=== PATIENT | female | born 1955 | race Caucasian/White ===

== ENCOUNTER 2023-08-26 12:58 | Outpatient (CLI) | payer MEDICARE, SELFPAY ==
--- NOTE | 2023-08-26 13:00 | MM_ITS ---
Patient: SYBIL TAN Facility:?[facility] Patient ID:?[id number] Site Patient ID:?[id number]. Site :?[id number] Study:?XRay-Breast Bilateral 3D w/CAD-08/26/2023 2:46:19 PM Ordering Physician:Geeta Final Report: BILATERAL SCREENING MAMMOGRAM WITH COMPUTER-AIDED DETECTION AND TOMOSYNTHESIS TECHNIQUE: CC and MLO views were obtained. These mammographic images have been obtained using full-field digital technique. These mammographic images were interpreted with the benefit of computer-aided detection. Breast Tomosynthesis was used in this interpretation. COMPARISON FILM: 06/15/2022. FINDINGS: There are scattered areas of fibroglandular density. IMPRESSION: There is no radiographic evidence for malignancy. ASSESSMENT: BI-RADS Category 1: Negative RECOMMENDATION: Routine screening mammogram in 1 year. A lay language report of this examination will be provided to the patient. Aguilar Agrawal M.D. Diagnostic Radiologist [email or web address] DSM/sp R& Transcribed: 12:06 p.m. SP/Dictated by: Aguilar Agrawal MD @ 08/29/2023 9:55:00 AM Signed by:?Aguilar Agrawal MD @08/29/2023 12:12:24 PM (Electronic Signature)
--- OUTSIDE RECORDS SUMMARY | 2023-08-26 13:01 | XMS_ITS | Clinical Summary ---
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 1 mL 12 08/18/2009 Active estradiol vaginal (VAGIFEM) 25 mcg vaginal tabletIndications: Postmenopausal atrophic vaginitis Insert 1 tablet into the vagina. Use in the vagina twice weekly 24 tablet 3 08/18/2009 Active ergocalciferol (VITAMIN D) 50,000 unit capsule Take 1 capsule by mouth. 1 capsule twice weekly 16 capsule 0 08/22/2009 Active Active Problems Problem Noted Date Diagnosed Date Screen for colon cancer 10/01/2009 Overview: Colonoscopy 09/2009 normal repeat in 10 years LGSIL (low grade squamous intraepithelial dyspla aidan) 09/08/2009 Vitamin D deficiency 08/22/2009 Status post gastric bypass for obesity 8 Overview: Rou-n-y surgery in 1999 Closed fracture of one or more phalanges of foot 05/18/2007 Immunizations Name Administration Dates Next Due Td (Age >=7 Years) 02/11/2004 Family History Medical History Relation Name Comments Other Brother sleep apnea Stroke Father Heart Disease Maternal Grandfather Diabetes Maternal Grandmother Heart Disease Mother Psychiatric illness Mother depressi on Cancer-breast Other cousin, father s side Heart Disease Paternal Grandfather Diabetes Sister 1 Other Sister 2 ulcerative coli tis Cancer-colon No Family History Relation Name Status Comments Brother Father Maternal Grandfather Maternal Grandmother Mother Other Paternal Grandfather Sister 1 Sister 2 Social History Tobacco Use Types Packs/Day Years Used Date Smoking Tobacco: Never Smokeless Tobacco: Never Tobacco Cessation:Counseling Given: Yes Alcohol Use Standard Drinks/Week Comments Yes 0 (1 standard drink = 0.6 oz pur e alcohol) wine occasionally Social Connections Answer Date Recorded Frequency of Communication with Friends and Fami ly Not on file 12/16/2021 Sex and Gender Information Value Date Recorded Sex Assigned at Not on file Gender Identity Not on file Sexual Orientation Not on file Obstetrics History Para Term AB IAB SAB Ectopic Multiple Livin g Live Births 6 4 2 2 4 Date Outcome GA Total Labor Labor/2nd/3rd Weight Sex Delivery Anes PTL Betsey A1 A5 Name Cl in Para Para Para Para SAB SAB Last Filed Vital Signs Vital Sign Reading Time Taken Comments Blood Pressure 126/74 12/16/2021 3:14 PM CDT Pulse 74 12/16/2021 3:14 PM CDT Temperature 36.8 ??C (98.2 ??F) 01/01/2008 2:19 PM CD T Respiratory Rate - - Oxygen Saturation 97% 12/16/2021 3:14 PM CDT Inhaled Oxygen Concentration - - Weight 88.7 kg (195 lb 9.6 oz) 12/16/2021 3:14 P M CDT Height 161.3 cm (5' 3.5) 12/16/2021 3:14 PM CDT Body Mass Index 34.11 12/16/2021 3:14 PM CDT Plan of Treatment Health Maintenance Due Date Last Done Comments Tdap 1965 Depression screening for age 12+ 1966 Hepatitis C screening for ag e 18-79 1972 Zoster (shingles) series for age 50+ (1 of 2) 2004 Mammogram for age 45-75 07/01/2010 07/01/2009, 12/31 Tetanus booster 02/10/2014 02/11/2004 Lipids for age 45-75 08/18/2014 08/18/2009, 01/09/20 08 DEXA/DXA scan for age 65+ 2019 Pneumococcal series for age 65+ (1 of 1 - PCV) 2019 Colonoscopy through age 75 10/02/2019 10/01/2009 BMI (ht and wt on same day) for age 18+ 12/16/2022 12/16/2021 COVID-19 vaccine series (5 - 2022-24 season) 2023 11/15/2021, 04/15/2021, 07/19/2020, Additional history exists Influenza for age 65+ 01/22/2024 Procedures Procedure Name Priority Date/Time Associated Diagnosis Comments LIPID PANEL Routine 08/18/2009 4:41 PM CDT Status post gastric bypass for obesity XR MAMMO BILAT DIAG FFDM (IA) Routine 07/01/2009 11:05 AM COLD PRESS LOADER Breast Pain from Last 3 Months or Most Recently Relevant to Health Maintenance Results * lipid panel (08/18/2009 4:41 PM CDT) CHOLESTEROL,TOTAL 192 110 - 199 mg/dL [facility] TRIGLYCERIDES 75 <150 mg/dL [facility] HDL CHOLESTEROL 63 >40 mg/dL [facility] CHOL/HDL RATIO 3.05 <4.51 [facility] LDL CHOLESTEROL 114 <131 mg/dL [facility] PATIENT STATUS Fasting [facility] Blood specimen (specimen) BLOOD SPECIMEN / Unknown 08/18/2009 4:41 PM CDT 08/18/2009 4:30 PM CDT Tish Gardner CHEMISTRY [facility] [address] [place] [address] * XR MAMMO BILAT DIAG FFDM (07/01/2009 11:05 AM COLD PRESS LOADER) MAMMOGRAM ACR 2 Benign Finding Anatomical Region Laterality Modality BREASTS, Breast Left, Breast Right Bilateral Mammography 07/01/2009 11:0 5 AM COLD PRESS LOADER Addenda Addendum by Zack Armenta DO on 07/11/2009 2:50 PM COLD PRESS LOADER ??ADDENDUM ? ADDENDUM ? ADDENDUM It was brought to my attention on 07/11/2009 that this should have actually been a diagnostic mammogram with the patient having left-sided breast pain. ??Apparently this was not related to the technologist at the time of this examination and the patient underwent routine screening. ??There is no change in the interpretation of the mammographic report however if additional imaging is desired and the breast pain is focal then an ultrasound could be considered. ?? Narrative 07/11/2009 1:47 PM COLD PRESS LOADER Benign findings noted on mammogram. ??For complete description of the mammographic examination, please reference scanned document within [facility]. ?? We are mailing a results letter to the patient. ACR 2 Benign Finding Procedure Note Zack Armenta DO - 07/10/2009 Benign findings noted on mammogram. For complete description of themammographic examination, please reference scanned document [facility]. We are mailing a results letter to the patient. ACR 2 Benign Finding Tish Gardner MAMMO from Last 3 Months or Most Recently Relevant to Health Maintenance Care Teams Janitor Head Relationship Specialty Start Date End Date Tanika Dixon PCP - General 03/17/16
--- OUTSIDE RECORDS SUMMARY | 2023-08-26 13:01 | XMS_ITS | Clinical Summary ---
Author Name Unknown Organization [place] Address [address] [place] [address] Care Team Providers Care Supervisor Pumping Station Name Role Phone [facility] Primary Care Provider Umang Perdomo MD Unavailable Poncho Castro MD Unavailable Yumiko Mendoza MD Unavailable Allergies Active Allergy Reactions Criticality Noted Date Comments Penicillin G 02/20/2020 Medications Hospital, Clinic, or Other Facility Administered Medication Ordered Dose Route Frequency Start Date End Date Status triamcinolone (KENALOG-40) injection 40 mgIndications:Rotator cuff injury, initial encounter 40 mg 12/08/2021 Active triamcinolone (KENALOG-40) injection 20 mgIndications:Trigger finger, unspecified finger, unspecified laterality 20 mg 11/01/2022 Ac tive lidocaine 1 % injection 0.5 mLIndications:Trigger finger, unspecified finger, unspecified laterality .5 mL 11/01/2022 Ac tive 0.5 mL bupivacaine (MARCAINE) 0.5% injection (50 mL vial)Indications:Trigger finger, unspecified finger, unspecified laterality .5 mL 11/01/2022 Ac tive Active Problems Problem Noted Date Diagnosed Date ASCUS with positive high risk HPV cervical 02/25 Overview: 06/08/05 NIL Pap 01/01/08 ASCUS pap 08/18/09 LSIL Pap 09/08/09 [place] Bx's ANKITA 1, ECC insufficient tissue to diagnose 02/16/21 Pt with h/o abnormal pap smear and overdue for recheck Unfortunately we do not have recent records. This is per pt report 02/16/21 ASCUS pap, + HR HPV (neg 16/18). [place] due by 05/18/21. 03/25/21 Colpo bx and ECC ANKITA 1. Plan: cotest in one year 06/15/22 NIL pap, + HR HPV (not 16 or 18). Plan cotest in [address] Castro due by 06/15/23 06/23/22. Result sent via [employer]. Pt read results. 05/27/2023 Reminder MyChart 06/27/2023 Reminder call - lm 07/28/2023 Lost to follow-up for pap tracking Resolved Problems Problem Noted Date Diagnosed Date Resolved Date Acute pain of right shoulder 07/01/2021 02/10/2022 Chronic pain of left knee 10/28/2020 Hip pain, left 10/28/2020 01/14/2021 Immunizations Name Administration Dates Next Due Flu, Unspecified 01/30/2020 Hepatitis A (ADULT 19+) 11/09/2021 Influenza (High Dose) 3 valent vaccine 0 Influenza (intradermal) 05/04/2012 Influenza Vaccine 65+ (Fluzone HD) 02/16/2021 Influenza Vaccine >6 months,quad, PF 05/08/2022, 03/05/2019 Influenza Vaccine, 6+MO IM ( QUADRIVALENT W/PRESERVATIVES) 03/25/2014 Influenza, seasonal, injectable, PF 02/16/2011 TDAP Vaccine (Adacel) 02/10/2020 Td (Adult), Adsorbed 02/11/2004 Family History Medical History Relation Comments Diabetes Brother type 2 Cerebrovascular Disease Father age 70, lived 12 more years Depression Mother Thyroid Disease Mother Diabetes Sister 1 type 2 Breast Cancer Sister 2 HERS 2+ Relation Status Comments Brother Father Mother Sister 1 Sister 2 Social History Tobacco Use Types Packs/Day Years Used Date Smoking Tobacco: Never Smokeless Tobacco: Never Tobacco Cessation:Counseling Given: Not Answered Alcohol Use Standard Drinks/Week Comments Yes 0 (1 standard drink = 0.6 oz pur e alcohol) wine maybe x3 month PHQ-2 Answer Date Recorded PHQ-2 Score 0 06/15/2022 Adolescent Education Answer Date Record ed Getting School Help Needed Not on file 02/12 Sex and Gender Information Value Date Recorded Sex Assigned at Female 01/15/2021 4:59 PM CDT Gender Identity Female 01/15/2021 4:59 PM CDT Sexual Orientation Not on file Last Filed Vital Signs Vital Sign Reading Time Taken Comments Blood Pressure 120/70 11/01/2022 1:59 PM CDT Pulse 78 03/25/2021 11:33 AM CDT Temperature 37.2 ??C (98.9 ??F) 03/25/2021 11:33 AM C DT Respiratory Rate 17 03/25/2021 11:33 AM CDT Oxygen Saturation 98% 02/16/2021 2:15 PM CDT Inhaled Oxygen Concentration - - Weight 88.5 kg (195 lb) 11/01/2022 1:59 PM CDT Height 160 cm (5' 3) 06/15/2022 1:19 PM CAP MAKER Body Mass Index 34.54 06/15/2022 1:19 PM CAP MAKER Plan of Treatment Upcoming Encounters Date Type Department Care Team (Late st Contact Info) Description 09/30/2023 9:30 AM CDT Office Visit [facility] [address] [place] [address] Poncho Castro MD [address] [place] [address] Health Maintenance Due Date Last Done Comments ANNUAL REVIEW OF HM ORDERS 1955 CT COLONOGRAPHY 1955 DEXA 1955 FIT 1955 FLEX SIG 1955 sDNA (Cologuard) 1954 COLONOSCOPY 1964 COLORECTAL CANCER SCREENING 1964 RSV VACCINE ( & 60+) (1 - 1-dose 60+ series) 2014 Pneumococcal Vaccine: 65+ Years (1 of 1 - PCV) 2019 FALL RISK ASSESSMENT 02/16/2022 02/16/2021 PHQ-2 (once per calendar year) 2023 06/15/2022, 02/16/2021 HPV FOLLOW-UP 06/15/2023 06/15/2022, 02/16/2021 MEDICARE ANNUAL WELLNESS VISIT 06/15/2023 06/15/2022, 02/16/2021 PAP FOLLOW-UP 06/15/2023 06/15/2022, 01/22, 08/18/2009 GLUCOSE 02/17/2024 02/16/2021 MAMMO SCREENING 06/15/2024 06/15/2022, 11/21, 12/13/2016 ADVANCE CARE PLANNING 02/16/2026 02/16/2021 LIPID 02/16/2026 02/16/2021 DTAP/TDAP/TD IMMUNIZATION (2 - Td or Tdap) 02/09/2030 02/10/2020, 02/11/2004 HEPATITIS C SCREENING Addressed 02/16/2021 (Decline d) Overridden with the intention of not completing the topic INFLUENZA VACCINE Completed 03/28/2023, , 02/16/2021, Additional history exists COVID-19 Vaccine Completed 05/26/2023, , 04/15/2021, Additional history exists ZOSTER IMMUNIZATION Completed 06/06/2023, 3 HPV IMMUNIZATION Aged Out No longer e ligible based on patient's age to complete this topic IPV IMMUNIZATION Aged Out No longer e ligible based on patient's age to complete this topic MENINGITIS IMMUNIZATION Aged Out No l onger eligible based on patient's age to complete this topic RSV MONOCLONAL ANTIBODY Aged Out No l onger eligible based on patient's age to complete this topic Care Teams Supervisor Pumping Station Relationship Specialty Start Date End Date [facility] [address] [place] [address] PCP - General Clinic 02/20/20 Umang Perdomo MD [address] [facility] [place] [address] Assigned Musculoskeletal Provider 12/19/21 Poncho Castro MD [address] [place] [address] Assigned OBGYN Provider 06/19/22 [place] [address] [place] [address] Assigned PCP 07/17/22
--- OUTSIDE RECORDS SUMMARY | 2023-08-26 13:01 | XMS_ITS | Encounter Summary ---
Author Name Unknown Organization [place] Address [address] [place] [address] Care Team Providers Care Airport Traffic Controller Name Role Phone [facility] Primary Care Provider Julisa Chavez MD Unavailable [phone] Yumiko Mendoza MD Unavailable [phone] Umang Perdomo MD Unavailable Poncho Castro MD Unavailable Yumiko Mendoza MD Unavailable [phone] Encounter Details Date Type Department Care Team (Late st Contact Info) Description 07/01/2021 MyC Medical Advice [facility] [address] [place] [address] Tracey Honeycutt MA Social History Tobacco Use Types Packs/Day Years Used Date Smoking Tobacco: Never Smokeless Tobacco: Never Alcohol Use Standard Drinks/Week Comments Yes 0 (1 standard drink = 0.6 oz pur e alcohol) wine maybe x3 month PHQ-2 Answer Date Recorded PHQ-2 Score 0 02/16/2021 Sex and Gender Information Value Date Recorded Sex Assigned at Female 01/15/2021 4:59 PM CDT Gender Identity Female 01/15/2021 4:59 PM CDT Sexual Orientation Not on file COVID-19 Exposure Response Date Recorded In the last month, have you been in contact with someone who was confirmed or suspected to have Coronavirus / COVID-19? No / Unsure 07/01/2021 8:40 AM BUSINESS MANAGEMENT PROFESSOR documented as of this encounter Plan of Treatment Upcoming Encounters Date Type Department Care Team (Late st Contact Info) Description 09/30/2023 9:30 AM CDT Office Visit [facility] [address] [place] [address] Poncho Castro MD [address] [place] [address] documented as of this encounter Visit Diagnoses Not on filedocumented in this encounter Care Teams Airport Traffic Controller Relationship Specialty Start Date End Date Clinic - [facility] [address] [place] [address] PCP - General Clinic 02/20/20 Julisa Chavez MD [facility] [address] [place] [address] Assigned Musculoskeletal Provider 10/26/20 12/18/21 [place] [address] [place] [address] Assigned PCP 03/01/21 05/07/22 Umang Perdomo MD [address] [place] [address] Assigned Musculoskeletal Provider 12/19/21 Poncho Castro MD [address] [place] [address] Assigned OBGYN Provider 06/19/22 [place] [address] [place] [address] Assigned PCP 07/17/22 documented as of this encounter
--- OUTSIDE RECORDS SUMMARY | 2023-08-26 13:01 | XMS_ITS | Encounter Summary ---
Author Name Unknown Organization [facility] Address [address] [place] [address] Care Team Providers Care V Groove Cutter Name Role Phone [facility] Primary Care Provider Julisa Chavez MD Unavailable [phone] Yumiko Mendoza MD Unavailable [phone] Umang Perdomo MD Unavailable Poncho Castro MD Unavailable Yumiko Mendoza MD Unavailable [phone] Encounter Details Date Type Department Care Team (Late st Contact Info) Description 11/02/2021 MyC Medical Advice [facility] [address] [place] [address] Liliana Gardner, RN Social History Tobacco Use Types Packs/Day Years [...] Exposure Response Date Recorded In the last 10 days, have yo u been in contact with someone who was confirmed or suspected to have Coronavirus/COVID-19? No / Unsure 11/03/2021 8:40 AM CDT documented as of this encounter Plan of Treatment Upcoming Encounters Date Type Department Care Team (Late st Contact Info) Description 09/30/2023 9:30 AM CDT Office Visit [facility] [address] [place] [address] Poncho Castro MD [address] [place] [address] documented as of this encounter Visit Diagnoses Not on filedocumented in this encounter Care Teams V Groove Cutter Relationship Specialty Start Date End Date Clinic - [facility] [address] [place] [address] PCP - General Clinic 02/20/20 Julisa Chavez MD [facility] [address] [place] [address] Assigned Musculoskeletal Provider 10/26/20 12/18/21 [place] [address] [place] [address] Assigned PCP 03/01/21 05/07/22 Umang Perdomo MD [address] [place] [address] Assigned Musculoskeletal Provider 12/19/21 Poncho Castro MD [address] [place] [address] Assigned OBGYN Provider 06/19/22 [place] [address] [place] [address] Assigned PCP 07/17/22 documented as of this encounter
--- OUTSIDE RECORDS SUMMARY | 2023-08-26 13:01 | XMS_ITS | Referral Summary ---
Author Name Unknown Organization [facility] Address [address] [place] [address] Care Team Providers Care Associate Project Manager Name Role Phone [facility] [place] Primary Care Provider Umang Perdomo MD Unavailable Poncho Castro MD Unavailable Yumiko Mendoza MD Unavailable [phone] Allergies Active Allergy Reactions Criticality Noted Date [...] 01/01/08 ASCUS pap 08/18/09 LSIL Pap 09/08/09 [place] Bx's ANKITA 1, ECC insufficient tissue to diagnose 02/16/21 Pt with h/o abnormal pap smear and overdue for recheck Unfortunately we do not have recent records. This is per pt report 02/16/21 ASCUS pap, + HR HPV (neg 16/18). [place] due by 05/18/21. 03/25/21 [place] bx and ECC ANKITA 1. Plan: cotest in one year 06/15/22 NIL pap, + HR HPV (not 16 or 18). Plan cotest in [address] Castro due by 06/15/23 06/23/22. Result sent via [email or web address]. Pt read results. 05/27/2023 Reminder MyChart 06/27/2023 [...] Vaccine (Adacel) 02/10/2020 Td (Adult), Adsorbed 02/11/2004 Social History Tobacco Use Types Packs/Day Years [...] 160 cm (5' 3) 06/15/2022 1:19 PM RISK CONTROL ANALYST Body Mass Index 34.54 06/15/2022 1:19 PM RISK CONTROL ANALYST Plan of Treatment Upcoming Encounters Date Type Department Care Team (Late st Contact Info) Description 09/30/2023 9:30 AM CDT Office Visit [facility] [address] [place] [address] Poncho Castro MD [address] [place] [address] Care Teams Associate Project Manager Relationship Specialty Start Date End Date Clinic - [place] [facility] [address] [place] [address] PCP - General Clinic 02/20/20 Umang Perdomo MD [address] [facility] [address] [place] [address] Assigned Musculoskeletal Provider 12/19/21 Poncho Castro MD [address] [place] [address] Assigned OBGYN Provider 06/19/22 [place] [address] [place] [address] Assigned PCP 07/17/22
== END 2023-08-26 12:59 | disposition home or self-care (01) ==
LOC: MAMMO 12:59
PROVIDERS: PCP Internal Medicine; Visit Provider Internal Medicine
DX: Z12.31 Encounter for screening mammogram for malignant neoplasm of breast (principal)
CPT/HCPCS: 77063; 77067

== ENCOUNTER 2023-08-31 09:46 | Outpatient (CLI) | payer MEDICARE, SELFPAY | END 2023-08-31 09:47 | disposition home or self-care (01) | LOC: NFLDREF 09:47 | PROVIDERS: PCP Internal Medicine; Visit Provider Internal Medicine | DX: Z98.84 Bariatric surgery status (principal) | CPT/HCPCS: 80053; 82306; 82525; 82607; 82728; 82747; 83735; 84443; 84446; 84590; 84597; 84630 ==

== ENCOUNTER 2023-12-26 10:30 | Outpatient (RCR) | payer MEDICARE, SELFPAY ==
--- NOTE | 2023-08-02 12:53 | PT.OPEX ---
PT [place] Outpatient Eval PT [facility] Outpatient Eval Start: 08/01/23 13:07 Freq: Status: Active Protocol: Document 08/01/23 13:07 ARR (Rec: 08/01/23 14:18 ARR [id number]) E-signed By Bri Simpson DPT Physical Therapy Outpatient Evaluation Insurance Information Recert Due Date 10/30/23 Insurance Name Medicare B Medical Diagnosis N39.3 Stress incontinence Treating Diagnosis N39.43 Post-void dribbling N39.41 Urge incontinence K59.00 Constipation, unspecified M79.605 pain in left leg Referring MD Inga Cornelius MD ([facility]) Subjective Subjective -Subjective: Ongoing problem for 10+ years. Has IBS with urgency with bowel since 20's. Manages it with diet. Since having trouble sleeping, started taking Calm and this interacts with bowels creating more urgency. 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 This is still a trigger getting home unless she bends over at 45* angle seems to reduce this urge. Bowel - will wake up in the AM and have urge to go 1/2 to 1/3 after coffee. Then will move around and will do the next 1/2 or 1/3. The last BM is liquid because it backs up. IBS started in late 20s with first child. During would create urgency that would resolve after . Managed with diet. Then had gastric bypass surgery 1999 that changed a lot. Over time things calmed down. Lost 100-120#. Knows she isn't as active now. Did leak stool in the last few months, feels it could be due to magnesium but not sure. Was at the opening of anal opening, was liquidy with chunks. only time leaking stool in the last 6 months. Usually is diet driven such as greasy foods, specific alcohol such as wine. -Urinary: Wine can cause urinary incontinence, has reduced. Daytime urination 6-8 times or more. Can be more if not drinking as much water. If she forgets will drink a lot of water. No straining. Post-void dribbling. TRIGGERS: have urinary leakage when taking a shower with a strong urge. Another trigger occurs when pulling into garage with car. Another trigger can occur when cool air hits warm skin in the AM. Going from warm to cold environment. Going from sit to stand after sitting for a period of time when getting an urge to go. LEAKAGE: occurs when having an urge to go. No urge to go when sitting , the urge can come on when rising to standing/standing will get an urge and must lean over 45* from trunk or will leak. Doesn't leak daily, maybe a few drops 2x/wk. Will get outer pants more often in the winter going from the warm to cold will get an urge to urinate. URGENCY: occurs maybe every every other day but triggers occur daily. -Hydration: water 60-90 oz / < 20 oz coffee / alcohol 2x/ month (202# - last 6 wks put on 10#) -Bowel: After BM 4-6 sec after will have urination episode. Throckmorton chart can start as a type 6 and can go to a type 7 if having had a dietary trigger. Can also be a type 4. Majority of stools can be more pencil like in nature. Will typically transition from a firmer stool to a liquid stool. Does splint at perineum . BM will go 2-3 times. When in [place] had beans and rice - had large BM due to heavy on fiber. Now being home stools are more pencil like and thin. Did take 3 big trips this year out of the country. No straining. Incomplete emptying . Bowel urgency in the AM only . Won't go after 11 in the AM. -Sexual: not active. -PMHx: obesity, lichen sclerosis et atrophicus of vulva on topical clobetasol, IBS with diarrhea, discoid lupus erythematosus. -: G/P 4/4 vaginal deliveries. No tear. -Surgical PMHx: Yaneli-en-Y gastric bypass 1999, exploratory laparotomy, cholecystectomy, appendectomy, s/p trigger finger release, s /p brachioplasty, h/o basal cell carcinoma excision Did lose 18 inches of intestines with bypass - was told to watch sugar intake. -Current exercise: walks a lot , does elliptical, nordic track machine - 5x/week walking. -Orthopedic issues: h/o L ITB issues, often legs feel like different lengths -feels like L leg longer -Goals: have list of things that can irritate symptoms, exercises for PF and ITB on L side, be able to stay active as long as possible. Would like to increase to 8 miles. Objective Other/Pertinent Objective -Posture: increased TS kyphosis with forward head and rounded shoulders -Gait: narrowed AUDIE with slight lateral trunk lean during stance phase of each side Functional Test Performed & Score PFQ: -Bladder 16/45 -Bowel 13/34 Total: 29 Assessment Assessment/Impression Pt is a 68 y/o female who presents with concerns of urinary leakage, bowel urgency , post-void dribbling, urinary urgency, and pain in left thigh. From subjective history , symptoms likely indicating / consistent with stress incontinence with underlying constipation. Question underlying descent of anterior vaginal wall as well. Initial session spent on subjective gathering due to level of pt complexity. Next visit to further assess contributing factors to symptoms including vaginal and rectal assessments . Patient is a good candidate for skilled therapy to target deficits described above. Skilled PT intervention is necessary for use of therapeutic exercise manual therapy, neuromuscular re- education, gait training, and therapeutic activity. Functional impairments include difficulty with: urinary leakage, pain in L thigh. See appropriate sections of PT eval for complete list of goals and POC. D/C plan and criteria is for pt to achieve the goals as listed below or until max rehab potential is met. Pt was agreeable with plan of care and goals established. Evaluation and internal vaginal PFM assessment/ treatment with patient consent was requested and obtained. Plan of Care Rehabilitation Potential Good Physical Therapy Goals STG (within 6 visits) 1) Pt will demonstrate proper coordination of motor recruitment patterns for PF then TA activation during isometric activation while maintaining diaphragmatic breathing pattern 2) Pt will report at least 60% improvement in urinary leakage since start of therapy for improved health of vaginal tissues 3) Pt will report ability to walk 4-5 miles without pain exceeding 2/10 and no urinary leakage LTG (within 12 visits) 1) Pt will demonstrate proper coordination of motor recruitment patterns for PF then TA activation during dynamic UE/LE movements in all postures while maintaining diaphragmatic breathing pattern 2) Pt will report reduced bowel frequency not exceeding 2 in quick succession with bristol chart 4-5 for improved bowel health 3) Pt will report at least 60% improvement in urinary leakage since start of therapy for improved health of vaginal tissues 4) Pt will report ability to walk 6-7 miles without pain exceeding 2/10 and no urinary leakage 5) Pt will demonstrate PFQ subscale scores for bladder and bowel <22 for improved quality of life. Treatment Plan/Direct Interventions Gait Training,Joint Mobilization,Manual Therapy, Neuromuscular Re-ed,Self-Care/ Home Management,Therapeutic Activities,Therapeutic Exercises,Traction (Mechanical ) Frequency/Duration 1x/wk x 12 visits in 90 days Patient Will Be Discharged From Therapy Skills [facility],Independent w/ HEP Evaluation Billing Complexity Moderate Certification Information Initial Certification Date 08/02/23 Ending Certification Date 10/30/23 Provider Signature Shows Agreement With POC & Medical Necessity Physician Signature & Date Requested Please Sign/Date Here Physician Comment/Change : Physician NPI Number #
--- NOTE | 2023-10-11 12:37 | PT.OPDNX ---
PT [facility] Daily Note PT [facility] Outpatient Daily Note Start: 08/01/23 13:07 Freq: Status: Active Protocol: Document 10/11/23 09:57 ARR (Rec: 10/11/23 10:59 ARR [email or web address]) E-signed By Bri Simpson DPT PT OP Daily Progress Note Visit Information Note Type Daily Note Visit Number 7 Insurance Information Recert Due Date 01/09/24 Insurance Name Medicare B Insurance Information/Comments Eval: 08/01/23 - 10/11/23 // Visits x 7 // Medical Diagnosis N39.3 Stress incontinence Treating Diagnosis N39.43 Post-void dribbling N39.41 Urge incontinence K59.00 Constipation, unspecified M79.605 pain in left leg Referring MD Inga oCrnelius MD ([facility]) Subjective Subjective -Has had more accidents, up to 68 oz of water. Seems to be tipping point. Before getting out of car does urge suppression, walking up steps - mvmt causes 1 drop of leakage into urethra. This is the point she wants to bend over and dooley. Tries to stop and relax and causes drop of leakage into underwear. Also notes leakage that can occur with attempts at pulling pants down. One day had x 2 leakage episodes. Feels tied to increased water. Hasn't had more urgency but more so leakage. Nighttime urination urination 1st in the AM is a 10-11 sec stream. Daytime urination trying to do at 2 hour intervals but does go just in case when out in public. Did add a lot of water in a short period. -Prior to drinking coffee would drink 12 oz then getting coffee. -No constipation. Waits to have urge for BM. Does have x 3 BM first 2 firm and last one liquid. -Also concerned with continued weight gain. Does eat breakfast and one other meal. -Would like to work with bariatric inside sales engineer vs preventive maintenance coordinator at [facility]. 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 -Can't stop flow of urine at all with UST. -Had PAP smear - got an oral pill but not widely covered. -Didn't go to [employer] - Home Exercise Home Exercise Comments OTHER: -Bladder diary -Bladder norms 08/07 Access Code: [email or web address] URL: [email or web address] Date: 08/15/2023 Prepared by: Bri Simpson Exercises - Sidelying Open Book Thoracic Rotation with Knee on Foam Roll - 1-2 x daily - 5-7 x weekly - 6-8 reps - Sidelying Diaphragmatic Breathing - 1-2 x daily - 5-7 x weekly - 6-8 reps GOALS: -Water bottle ? 24 ounces per day of water - Avoiding skipping meals or going >4 hours between meals - Ask PCP for referral to Coffee Grower at [facility] - Exercises 2x/day Objective Other/Pertinent Objective 08/08/23 INTERNAL EXAMINATION INTRAVAGINAL: -Sensation: intact to touch -Observation: pale discoloration to vestibule. Narrowing of vaginal opening and phimosis of clitoris -Perineum: normal -Cough: bulge -Lifting contraction: slight lift -Bulge: bulge -Prolapse: none Tenderness/pain to palpation/ tone: -Introidus: -Layer 1: ischiocavernosus / bulbospongiousus / superficial transverse perineal -Layer 2: deep transverse perineal / compressor urethra / sphincter urethrovaginalis -Layer 3: puborectalis / pubococcygeus / iliococcygeus TTP with inc'd tone Strength ( R / C / L): -Power (MMT): 2 -Endurance: 8 -Reps: 5 -Fast twitch: 5 -Relaxation of PFM after quick contractions: delayed Other: -Breathing examination: dec?d posterior and lateral ribcage mvmt with inhalation Functional Test Performed & Score PFQ: -Bladder 16/45 -Bowel 13/34 Total: 29 Patient Instructed in Risks/Benefits Yes Self Care Management Training Self-Care Activity Minutes (minutes) 55 Self Care Management Training Extended discussion/education regarding: -Primary factors contributing to sx's including: diet/ constipation/meal frequency, stress, PF weakness contributing factors -Discussed importance of stress mgmt and time for self- care. -Discussed/introduced concept of bowel routines to improve bowel emptying -Discussed digestion and implications of firm stool followed by liquid stool PRIMARY GOALS: ? (1) Urinary urgency ? Sit to stand ? Inhale to prepare. THEN exhale to rise engaging front of pelvic floor (kegel) and tightening lower belly muscles. ? Urge suppression techniques (see sheet) ? (2) -Hydration ? consistency with 50 ounces per day of water ? Avoiding fluid loading, sipping throughout the day ? (3) Bowel routine: ? Develop consistent routine for bowels: could include getting up in the morning, sipping on a hot beverage, eating breakfast, getting some mobility, then sitting on toilet no more than 10 minutes . ? (4) Increasing activity ? self-care time for destressing and decompression ? 4-5x/week 20 minutes KEEP WORKING ON: ? Aiming for plant based, whole foods ? creating diverse gut microbiome ? Fiber 25-35 g ? Getting breakfast in - avoiding skipping meals or going >4 hours between meals ? Ask PCP for referral to Coffee Grower at [facility] ? Exercises 2x/day ? Stress mgmt. ? Quality of sleep Treatment Minutes Timed Code Treatment Minutes 55 Total Treatment Time 55 Billing Units Neuromuscular Reeducation Units 1 Self-Care Activity Units 3 Assessment/Impression Assessment/Impression Flare of sx's after last session with increased urinary leakage/incontinence. Contributing factors including : underlying constipation ( skipping meals, reduced hydration), quick increase in water intake ingesting quickly at one time, increased stress . Also underlying sphincter weakness also likely adversely impacting sx's. Pt does have a hard time maintaining consistent compliance with goals, tends to go on/off. Pt to work on consistency with 4 primary goals as above and report next session. Pt likely to benefit from PT beyond POC dates for full therapeutic improvement. Plan of Care Physical Therapy Goals Pt progressing toward short/ exterminator helper goals STG (within 6 visits) 1) Pt will demonstrate proper coordination of motor recruitment patterns for PF then TA activation during isometric activation while maintaining diaphragmatic breathing pattern 2) Pt will report at least 60% improvement in urinary leakage since start of therapy for improved health of vaginal tissues 3) Pt will report ability to walk 4-5 miles without pain exceeding 2/10 and no urinary leakage LTG (within 12 visits) 1) Pt will demonstrate proper coordination of motor recruitment patterns for PF then TA activation during dynamic UE/LE movements in all postures while maintaining diaphragmatic breathing pattern 2) Pt will report reduced bowel frequency not exceeding 2 in quick succession with bristol chart 4-5 for improved bowel health 3) Pt will report at least 60% improvement in urinary leakage since start of therapy for improved health of vaginal tissues 4) Pt will report ability to walk 6-7 miles without pain exceeding 2/10 and no urinary leakage 5) Pt will demonstrate PFQ subscale scores for bladder and bowel <22 for improved quality of life. Daily Plan of Care Comments -Return vaginally -Review 4 primary goals and leakage -Strengthening exercises and mobility HEP - stress increased activity, stress mgmt Recertification Information Initial Certification Date 08/01/23 Recertification Start Date 10/11/23 Recertification Due Date 01/09/24 Reasons to Continue Skilled Therapy Pt had been seen for post-void dribbling, urge incontinence, constipation for 7 visits from 08/01/23 to 10/11/23 during this episode of physical therapy. Focus of therapy on behavioral education for improving bladder/bowel health by increasing hydration, meal consistency, fiber intake, and reducing urinary triggers. Interventions including ther exercise, manual therapy, self -care, neuromuscular re- education. Pt at this time has not yet met all short/exterminator helper goals and would benefit from extension of current plan of care for maximal therapeutic benefit. Skilled PT is indicated to continue at a frequency of 1x/wk for an additional 8 visits within 90 days. PT to continue working on behavioral strategies for bladder/bowel health in addition to progressing mobility and strengthening program. Rehabilitation Potential Good Provider Signature Shows Agreement With POC & Medical Necessity Physician Comment/Change Comment or Changes Physician NPI Number #
== END 2023-12-26 12:47 | disposition home or self-care (01) ==
PROVIDERS: PCP Internal Medicine; Visit Provider Internal Medicine
DX: N39.3 Stress incontinence (female) (male) (principal); Z51.89 Encounter for other specified aftercare
CPT/HCPCS: 97110; 97112; 97140; 97162; 97535

== ENCOUNTER 2025-02-07 16:36 | Emergency (ER) | payer MEDICARE, SELFPAY ==
--- OUTSIDE RECORDS SUMMARY | 2025-02-07 16:38 | XMS_ITS | Encounter Summary ---
Author Organization [facility] Address [address] [place] [address] Care Team Providers Care Group Underwriter Name Role Phone Clinic - [facility] Primary Care Provider Umang Perdomo MD Unavailable Poncho Castro MD Unavailable [phone] Yumiko Mendoza MD Unavailable [phone] Angelica Elder PA-C Unavailable No Ref-Primary, Physician Primary Care Provider Colette Wolfe MANUFACTURERS AGENT Primary Care Provider Colette Wolfe CNP Unavailable [phone] Angelica Elder PA-C Unavailable [phone] Umang Nina MD Unavailable [phone] Reason for Visit * Reason Onset Date Comments procedure 02/14/2024 Encounter Details Date Type Department Care Team (Late st Contact Info) Description 02/14/2024 MyC Medical Advice [facility] [address] [place] [address] Poncho Castro MD [address] [place], [place] [address] procedure Social History Tobacco Use Types Packs/Day Years Used Date Smoking Tobacco: Never Smokeless Tobacco: Never Alcohol Use Standard Drinks/Week Comments Yes 0 (1 standard drink = 0.6 oz pur e alcohol) wine maybe x3 month PHQ-2 Answer Date Recorded PHQ-2 Score 0 12/07/2023 Adolescent Education Answer Date Record ed Getting School Help Needed Not on file 02/12 Comments No Sex and Gender Information Value Date Recorded Sex Assigned at Female 01/15/2021 4:59 PM CDT Legal Sex Female 7:52 AM CDT Gender Identity Female 01/15/2021 4:59 PM CDT Sexual Orientation Not on file documented as of this encounter Plan of Treatment Upcoming Encounters Date Type Department Care Team (Late st Contact Info) Description 02/14/2025 9:15 AM CDT Office Visit [facility] [address] [place] [address] Poncho Castro MD [address] [place] [address] documented as of this encounter Visit Diagnoses Not on filedocumented in this encounter Care Teams Group Underwriter Relationship Specialty Start Date End Date Clinic - [facility] [address] [place] [address] PCP - General Clinic 02/20/20 07/05/24 No Ref-Primary, Physician PCP - General 07/06/24 07/08/24 Colette Wolfe, MANUFACTURERS AGENT [address] [place] [address] PCP - General Internal Medicine 07/09/24 [place] [address] [place] [address] Assigned Musculoskeletal Provider 12/19/21 05/13/24 Poncho Castro MD [address] [place] [address] Assigned OBGYN Provider 06/19/22 [place] [address] [place] [address] Assigned PCP 07/17/22 07/14/24 Angelica Elder PA-C [address] [place] [address] Physician Marketing Finance Specialist 06/12/24 Colette Wolfe CNP [address] [place] [address] Assigned PCP 07/15/24 Angelica Elder PA-C [address] [place] [address] Assigned Dermatology Provider 08/12/24 12/11/24 Umang Nina MD [address] [place] [address] Assigned Dermatology Provider 12/12/24 documented as of this encounter
--- OUTSIDE RECORDS SUMMARY | 2025-02-07 16:38 | XMS_ITS | Encounter Summary ---
Author Organization [facility] Address [address] [place] [address] Care Team Providers Care Sales Operations Manager Name Role Phone [facility] Primary Care Provider Julisa Chavez MD Unavailable [phone] Yumiko Mendoza MD Unavailable [phone] Umang Perdomo MD Unavailable Poncho Castro MD Unavailable [phone] Yumiko Mendoza MD Unavailable [phone] Angelica Elder PA-C Unavailable [phone] No Ref-Primary, Physician Primary Care Provider Colette Wolfe HOUSE MOVER HELPER Primary Care Provider [phone] Colette Wolfe HOUSE MOVER HELPER Unavailable Angelica Elder PA-C Unavailable [phone] Umang Nina MD Unavailable [phone] Encounter Details Date Type Department Care Team (Late st Contact Info) Description 07/01/2021 [facility] [address] [place] [address] Tracey Honeycutt MA Social History Tobacco Use Types Packs/Day Years Used Date Smoking Tobacco: Never Smokeless Tobacco: Never Alcohol Use Standard Drinks/Week Comments Yes 0 (1 standard drink = 0.6 oz pur e alcohol) wine maybe x3 month PHQ-2 Answer Date Recorded PHQ-2 Score 0 02/16/2021 Comments No Sex and Gender Information Value [...] COVID-19? No / Unsure 07/01/2021 8:40 AM COMMERCIAL LOAN OFFICER documented as of this encounter Plan of Treatment Upcoming Encounters Date Type Department Care Team (Late st Contact Info) Description 02/14/2025 9:15 AM CDT Office Visit [facility] [address] [place] [address] [place] [address] Poncho Castro MD [address] [place] [address] documented as of this encounter Visit Diagnoses Not on filedocumented in this encounter Care Teams Sales Operations Manager Relationship Specialty Start Date End Date Clinic - [facility] [address] [place] [address] PCP - General Clinic 02/20/20 07/05/24 No Ref-Primary, Physician PCP - General 07/06/24 07/08/24 Colette Wolfe, HOUSE MOVER HELPER [address] [place] [address] PCP - General Internal Medicine 07/09/24 Julisa Chavez MD [address] [place] [address] Assigned Musculoskeletal Provider 10/26/20 12/18/21 [place] [address] [place] [address] Assigned PCP 03/01/21 05/07/22 [place] [address] [place] [address] Assigned Musculoskeletal Provider 12/19/21 05/13/24 Poncho Castro MD [address] [place] [address] Assigned OBGYN Provider 06/19/22 [place] [address] [place] [address] Assigned PCP 07/17/22 07/14/24 Angelica Elder PA-C [address] [place] [address] Physician Appraiser Auditor 06/12/24 Colette Wolfe CNP [address] [place] [address] Assigned PCP 07/15/24 Angelica Elder PA-C [address] [place] [address] Assigned Dermatology Provider 08/12/24 12/11/24 Umang Nina MD [address] [place] [address] Assigned Dermatology Provider 12/12/24 documented as of this encounter
--- OUTSIDE RECORDS SUMMARY | 2025-02-07 16:38 | XMS_ITS | Encounter Summary ---
Author Organization [facility] Address [address] [place] [address] Care Team Providers Care Director Home Name Role Phone [facility] Primary Care Provider Julisa Chavez MD Unavailable [phone] Yumiko Mendoza MD Unavailable [phone] Umang Perdomo MD Unavailable Poncho Castro MD Unavailable [phone] Yumiko Mendoza MD Unavailable [phone] Angelica Elder PA-C Unavailable [phone] No Ref-Primary, Physician Primary Care Provider Colette Wolfe BILLING ADJUDICATOR Primary Care Provider [phone] Colette Wolfe BILLING ADJUDICATOR Unavailable [phone] Angelica Elder PA-C Unavailable [phone] Umang Nina MD Unavailable [phone] Encounter Details Date Type Department Care Team (Late st Contact Info) Description 11/02/2021 [facility] [address] [place] [address] Liliana Gardner, RN Social History [...] Description 02/14/2025 9:15 AM CDT Office Visit [facility] [address] [facility] [address] [place] [address] Poncho Castro MD [address] [place] [address] documented as of this encounter Visit Diagnoses Not on filedocumented in this encounter Care Teams Director Home Relationship Specialty Start Date End Date Clinic - [facility] [address] [place] [address] PCP - General Clinic 02/20/20 07/05/24 No Ref-Primary, Physician PCP - General 07/06/24 07/08/24 Colette Wolfe, BILLING ADJUDICATOR [address] [place] [address] PCP - General Internal Medicine 07/09/24 Julisa Chavez MD [address] [place] [address] Assigned Musculoskeletal Provider 10/26/20 12/18/21 [place] [address] [place] [address] Assigned PCP 03/01/21 05/07/22 [place] [address] [place] [address] Assigned Musculoskeletal Provider 12/19/21 05/13/24 Poncho Castro MD [address] [place] [address] Assigned OBGYN Provider 06/19/22 [place] [address] [place] [address] Assigned PCP 07/17/22 07/14/24 Angelica Elder PA-C [address] [place] [address] Physician Scientific Informatics Analyst 06/12/24 Colette Wolfe CNP [address] [place] [address] Assigned PCP 07/15/24 Angelica Elder PA-C [address] [place] [address] Assigned Dermatology Provider 08/12/24 12/11/24 Umang Nina MD [address] [place] [address] Assigned Dermatology Provider 12/12/24 documented as of this encounter
--- OUTSIDE RECORDS SUMMARY | 2025-02-07 16:38 | XMS_ITS | Clinical Summary ---
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 1 mL 12 0 Active estradiol vaginal (VAGIFEM) 25 mcg vaginal tabletIndicatio ns:Postmenopaus al atrophic vaginitis Insert 1 tablet into the vagina. Use in the vagina twice weekly 24 tablet 3 0 Active ergocalciferol (VITAMIN D) 50,000 unit capsule Take 1 capsule by mouth. 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) 09/08/2009 Vitamin D deficiency 08/22/2009 Status post gastric bypass for obesity 8 Overview (01/01/2008): Rou-n-y surgery in 1999 Closed fracture of one or more phalanges of foot 05/18/2007 Immunizations Immunization Administration Dates Next Due Td (Age >=7 [...] and Fami ly Not on file 12/16/2021 Comments No Sex and Gender Information Value Date Recorded Sex Assigned at Not on file Legal Sex Female 6:19 AM [employer] W[employer]PER[employer] Gender Identity Not on file Sexual Orientation Not on file 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, 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 Not on file Not on file Not on f ile Obstetrics History Para Term AB IAB SAB Ectopic Multiple Livin g Live Births 6 4 2 2 4 Date Outcome GA Total Labor Labor/2nd/3rd Weight Sex Type Anes PTL Betsey A1 A5 Name Clin Para Para Para Para SAB SAB Last Filed Vital Signs Vital Sign Reading Time Taken Comments Blood Pressure 126/74 12/16/2021 3:14 PM CDT Pulse 74 12/16/2021 3:14 PM CDT Temperature 36.8 C (98.2 F) 01/01/2008 2:19 PM CDT Respiratory Rate - - Oxygen Saturation 97% 12/16/2021 3:14 PM CDT Inhaled Oxygen Concentration - - Weight 88.7 kg (195 lb 9.6 oz) 12/16/2021 3:14 P M CDT Height 161.3 cm (5' 3.5) 12/16/2021 3:14 PM CDT Body Mass Index 34.11 12/16/2021 3:14 PM CDT Plan of Treatment Health Maintenance Due Date Last Done Comments Depression screening for age 12+ 1966 Hepatitis C screening for age 18-79 1972 Pneumococcal series for age 50+ (1 of 1 - PCV) 2004 Zoster (shingles) series for age 50+ (1 of 2) 2004 Mammogram for age 45-75 07/01/2010 07/01/2009, 12/31 Tetanus booster 02/10/2014 02/11/2004 Lipids for age 45-75 08/18/2014 08/18/2009, 01/09/20 08 DEXA/DXA scan for age 65+ 2019 Colonoscopy through age 75 10/02/2019 10/01/2009 BMI (ht and wt on same day) for age 18+ 12/16/2022 12/16/2021 COVID-19 vaccine series ( - 2024- season) 2025 11/15/2021, 04/15/2021, 07/19/2020, Additional history exists Influenza Vaccine (#1) 2025 RSV vaccine for adults or (1 - 1-dose 75+ series) 2029 Hepatitis B series for 19+ Aged Out N o longer eligible based on patient's age to complete this topic Procedures Procedure Name Priority Date/Time Associated Diagnosis Comments LIPID PANEL Routine 08/18/2009 4:41 PM CDT Status post gastric bypass for obesity XR MAMMO BILAT DIAG FFDM (IA) Routine 07/01/2009 11:05 AM [employer]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 CHOL/HDL RATIO 3.05 <4.51 [facility] LDL CHOLESTEROL 114 <131 mg/dL [facility] PATIENT STATUS Fasting [facility] Blood specimen (specimen) BLOOD SPECIMEN / Unknown 08/18/2009 4:41 PM CDT 08/18/2009 4:30 PM CDT Tish Gardner CHEMISTRY Final R esult [facility] [address] [place] [address] * XR MAMMO BILAT DIAG FFDM (07/01/2009 11:05 AM [employer] W[employer]ER OPERATOR) MAMMOGRAM ACR 2 Benign Finding Anatomical Region Laterality Modality BREASTS, Breast Left, Breast Right Bilateral Mammography 07/01/2009 11:0 5 AM [employer] W[employer] OPERATOR Addenda Addendum by Zack Armenta DO on 07/11/2009 2:50 PM [employer] W[employer] OPERATOR ADDENDUM ADDENDUM ADDENDUM It was brought to my attention on 07/11/2009 that this should have actually been a diagnostic mammogram with the patient having left-sided breast pain. Apparently this was not related to the technologist at the time of this examination and the patient underwent routine screening. There is no change in the interpretation of the mammographic report however if additional imaging is desired and the breast pain is focal then an ultrasound could be considered. Narrative 07/11/2009 1:47 PM [employer] W[employer]ER OPERATOR Benign findings noted on mammogram. For complete description of the mammographic examination, please reference scanned document within [facility]. We are mailing a results letter to the patient. ACR 2 Benign Finding Procedure Note Zack Armenta DO - 07/10/2009 Benign findings noted on mammogram. For complete description of themammographic examination, please reference scanned document [facility]. We are mailing a results letter to the patient. ACR 2 Benign Finding Tish Gardner MAMMO Edited Result - Final from Last 3 Months or Most Recently Relevant to Health Maintenance Insurance [employer] Care Teams Professor Of Education Relationship Specialty Start Date End Date Pcp, No . PCP - General 05/30/24
--- OUTSIDE RECORDS SUMMARY | 2025-02-07 16:39 | XMS_ITS | Clinical Summary ---
Author Organization [facility] Address [address] [place] [id number] Care Team Providers Care Rail Doweling Machine Operator Name Role Phone Poncho Castor MD Unavailable [phone] Angelica Elder PA-C Unavailable [phone] Colette Wolfe WIRELESS SALES EXPERT Primary Care Provider Colette Wolfe CNP Unavailable [phone] Umang Nina MD Unavailable [phone] Allergies Active Allergy Reactions Criticality Noted Date Comments Penicillin G 02/20/2020 Medications clobetasol propionate (TEMOVATE) 0.05 % external cream Apply topically 2 times daily. Active ketoconazole (NIZORAL) 2 % external cream Apply topically daily. Active hydrocortisone 2.5 % creamIndication s:Intertrigo Apply topically 2 times daily. Apply to affected areas twice daily for 2 weeks or until resolution of rash, then discontinue. Thereafter, may use only as needed for flares. 30 g 2 5 Active fluorouracil (EFUDEX) 5 % external creamIndication s:Actinic keratosis Mix with calcipotriene and apply BID to affected areas for 7 days. 40 g 1 5 Active calcipotriene (DOVONOX) 0.005 % external creamIndication s:Actinic keratosis Mix with fluorouracil and apply BID to affected areas for 7 days until desired result is achieved. Wash hands after applying. Avoid sun 60 g 1 5 Active estradiol-noret hindrone (ACTIVELLA) 1-0.5 MG tabletIndicatio ns:Symptomatic menopausal or female climacteric states Take 1 tablet by mouth daily. 90 tablet 5 Active Active Problems Problem Noted Date Diagnosed Date Class 2 severe obesity due t o excess calories with serious comorbidity and body mass index (BMI) of 36.0 to 36.9 in adult 07/09/2024 Counseling for estrogen replacement therapy 01/22 Trigger finger, left index finger 06/06/2023 Overview (07/09/2024): Had shot in [facility], wore off, pain is worse on waking. Now enlarged area in mid- hand. ASCUS with positive high risk HPV cervical 02/25 Overview (07/16/2024): 06/08/05 NIL Pap 01/01/08 ASCUS pap 08/18/09 LSIL Pap 09/08/09 [place] Bx's ANKITA 1, ECC insufficient tissue to diagnose 02/16/21 Pt with h/o abnormal pap smear and overdue for recheck Unfortunately we do not have recent records. This is per pt report 02/16/21 ASCUS pap, + HR HPV (neg 16/18). [place] due by 05/18/21. 03/25/21 [place] bx and ECC ANKITA 1. Plan: cotest in one year 06/15/22 NIL pap, + HR HPV (not 16 or 18). Plan cotest in [address] Castro due by 06/15/23 07/28/2023 Lost to follow-up for pap tracking 09/30/23 ASCUS pap, + HR HPV (not 16 or 18). Plan colp due by 12/31/23 12/07/23 [place] - ECC Atypical cell clusters suspicious for high-grade dysplastic change. Plan LEEP due by 03/08/24. 02/15/24 LEEP Bx: benign. Plan 6 month cotest (due 08/14/24) 07/09/24 NIL pap, Neg HPV. Plan cotest in 1 year, due before 07/09/25 Abnormal Pap smear of cervix 09/08/2009 Vitamin D deficiency 08/22/2009 Status post gastric bypass for obesity 8 Overview (02/10/2024): Rou-n-y surgery in 1999 Closed fracture of one or more phalanges of foot 05/18/2007 Resolved Problems Problem Noted Date Diagnosed Date Resolved Date Acute pain of right shoulder 07/01/2021 02/10/2022 Chronic pain of left knee 10/28/2020 Hip pain, left 10/28/2020 01/14/2021 Encounters Date Type Department Care Team Description 12/27/2024 MyC Medical Advice [facility] [address] [place] [address] Poncho Castro MD Symptomatic menopausal or female climacteric states 11/15/2024 8:30 AM CDT Office Visit [facility] [address] [address] Umang Nina MD Dermal nevus (Primary Dx); Angioma of skin; Lentigo; Seborrheic keratoses; Basal cell carcinoma (BCC) of forehead 11/15/2024 Travel 11/10/2024 Travel from Last 3 Months Immunizations Immunization Administration Dates Next Due Flu, Unspecified 01/30/2020 Hepatitis A (VAQTA)(ADULT 19+) 09/06/2022,2021 Influenza (High Dose) Trivalent,PF (Fluzone) ,02/19/2020 Influenza (intradermal) 05/04/2012 Influenza (prior to 2023) 02/16/2011 Influenza Vaccine 65+ (FLUAD) 03/28/2023 Influenza Vaccine 65+ (Fluzone HD) 02/16/2021 Influenza Vaccine >6 months,quad, PF 05/08/2022, 03/05/2019 Influenza Vaccine, 6+MO IM ( QUADRIVALENT W/PRESERVATIVES) 03/25/2014 TDAP Vaccine (Adacel) 02/10/2020 Td (Adult), Adsorbed 02/11/2004 Typhoid IM 09/06/2022 Yellow Fever 09/06/2022 Zoster recombinant adjuvanted (Shingrix) 024,08/19/2022 Family History Medical History Relation Comments Diabetes Brother type 2 Skin Cancer Brother Cerebrovascular Disease Father age 70, lived 12 more years Skin Cancer Father Depression Mother Thyroid Disease Mother Diabetes Sister [...] pur e alcohol) wine maybe x3 month Social Connection and Isolation Panel [NHANES] A nswer Date Recorded Frequency of Communication with Friends and Fami ly Not on file 07/08/2024 How often do you get together with friends or re latives? Once a week 07/08/2024 Attends Synagogue Services Not on file 07/08 Active Member of Clubs or Organizations Not on f ile 07/08/2024 Attends Club or Organization Meetings Not on alo e 07/08/2024 Marital Status Not on file 07/08/2024 PHQ-2 Answer Date Recorded PHQ-2 Score 1 07/09/2024 [facility] [place] of Occupat ional Health - Occupational Stress Questionnaire Answer Date Recorded Do you feel stress - tense, restless, nervous, or anxious, or unable to sleep at night because your mind is troubled all the time - these days? To some extent 07/08/2024 Exercise Vital Sign Answer Date Recorde d On average, how many days pe r week do you engage in moderate to strenuous exercise (like a brisk walk)? 4 days 07/08/2024 On average, how many minutes do you engage in exercise at this level? 30 min 07/08/2024 Adolescent Education Answer Date Record ed Getting School Help Needed Not on file 02/12 Food Insecurity Answer Date Recorded Within the past 12 months, d id you worry that your food would run out before you got money to buy more? No 07/08/2024 Within the past 12 months, d id the food you bought just not last and you didn t have money to get more? No 07/08/2024 Housing Stability Answer Date Recorded Do you have housing? (Housin g is defined as stable permanent housing and does not include staying outside in a car, in a tent, in an abandoned building, in an overnight half-way, or couch-surfing.) Yes 07/08/2024 Are you worried about losing your housing? No 07/08/2024 Financial Resource Strain Answer Date R ecorded Within the past 12 months, h ave you or your family members you live with been unable to get utilities (heat, electricity) when it was really needed? No 07/08/2024 Transportation Needs Answer Date Record ed Within the past 12 months, h as lack of transportation kept you from medical appointments, getting your medicines, non-medical meetings or appointments, work, or from getting things that you need? No 07/08/2024 Interpersonal Safety Answer Date Record ed Do you feel physically and e motionally safe where you currently live? Yes 07/09/2024 Within the past 12 months, h ave you been hit, slapped, kicked or otherwise physically hurt by someone? No 07/09/2024 Within the past 12 months, h ave you been humiliated or emotionally abused in other ways by your partner or ex-partner? No 07/09/2024 Comments No Sex and Gender Information Value Date Recorded Sex Assigned at Female 01/15/2021 4:59 PM CDT Legal Sex Female 7:52 AM CDT Gender Identity Female 01/15/2021 4:59 PM CDT Sexual Orientation Not on file Last Filed Vital Signs Vital Sign Reading Time Taken Comments Blood Pressure 116/69 07/09/2024 8:17 AM PROGRAM MANAGEMENT SPECIALIST Pulse 66 07/09/2024 8:17 AM PROGRAM MANAGEMENT SPECIALIST Temperature 36.4 C (97.6 F) 07/09/2024 8:17 AM PROGRAM MANAGEMENT SPECIALIST Respiratory Rate 16 07/09/2024 8:17 AM PROGRAM MANAGEMENT SPECIALIST Oxygen Saturation 99% 07/09/2024 8:17 AM PROGRAM MANAGEMENT SPECIALIST Inhaled Oxygen Concentration - - Weight 93.6 kg (206 lb 4.8 oz) 07/09/2024 8:17 A M PROGRAM MANAGEMENT SPECIALIST Height 160.5 cm (5' 3.19) 07/09/2024 8:17 AM CS T Body Mass Index 36.33 07/09/2024 8:17 AM PROGRAM MANAGEMENT SPECIALIST Plan of Treatment Upcoming Encounters Date Type Department Care Team (Late st Contact Info) Description 02/14/2025 9:15 AM CDT Office Visit [facility] [address] [place] [address] Poncho Castro MD [address] [place] [address] Health Maintenance Due Date Last Done Comments ANNUAL REVIEW OF HM ORDERS 1954 CT COLONOGRAPHY 1954 FIT 1954 FLEX SIG 1954 COLONOSCOPY 1964 PNEUMOCOCCAL VACCINE 50+ YEARS (1 of 1 - PCV) 2004 COVID-19 VACCINE ( season) 2025 03/14/2024, 05/26/2023, 11/15/2021, Additional history exists INFLUENZA VACCINE (#1) 2025 , 03/28/2023, 05/08/2022, Additional history exists FALL RISK ASSESSMENT 07/09/2025 07/09/2024, 02/17/20 21 HPV FOLLOW-UP 07/09/2025 07/09/2024, 09/20, 06/15/2022, Additional history exists MEDICARE ANNUAL WELLNESS VISIT 07/09/2025 07/09/2024, 05/26/2023, 06/15/2022, Additional history exists PAP FOLLOW-UP 07/09/2025 07/09/2024, 06/23, 09/30/2023, Additional history exists MAMMO SCREENING 08/25/2025 08/26/2023, 04/0 09/2023, 06/15/2022, Additional history exists COLORECTAL CANCER SCREENING 10/07/2025 sDNA (Cologuard) 10/07/2025 10/07/2022, 10/07/2022 DEXA 08/30/2026 08/30/2024 DIABETES SCREENING 07/09/2027 07/09/2024, 0 07/09/2024, 02/16/2021 RSV VACCINE (1 - 1-dose 75+ series) 2029 ADVANCE CARE PLANNING 07/09/2029 07/09/2024, 021 LIPID 07/09/2029 07/09/2024, 02/16/2021 DTAP/TDAP/TD VACCINE (2 - Td or Tdap) 02/09/2030 02/10/2020, 02/11/2004 HEPATITIS C SCREENING Addressed 02/16/2021 (Decline d) Overridden with the intention of not completing the topic ZOSTER VACCINE Completed 06/06/2023, 08/19/2022 PHQ-2 (once per calendar year) Completed 07/09/2024, 12/07/2023, 06/15/2022, Additional history exists HPV VACCINE (No Doses Required) Completed MENINGITIS VACCINE Aged Out No longer eligible based on patient's age to complete this topic Procedures Procedure Name Priority Date/Time Associated Diagnosis Comments TX REPAIR COMPLEX, WOUND HEAD/AXIL/GEN/HND/FT 2.6-7.5 CM Routine 11/15/2024 9:48 AM CDT Dermal nevus Angioma of skin Lentigo Seborrheic keratoses Basal cell carcinoma (BCC) of forehead TX MOHS HEAD/NCK/HND/FT/GEN 1ST STAGE UP T0 5 BLOCKS Routine 11/15/2024 9:48 AM CDT Dermal nevus Angioma of skin Lentigo Seborrheic keratoses Basal cell carcinoma (BCC) of forehead DX AXIAL HIPS/SPINE Routine 08/30/2024 1 1:47 AM CDT Vitamin D deficiency Encounter for preventive health examination Status post gastric bypass for obesity Screening for osteoporosis Postmenopausal status ASCUS with positive high risk HPV cervical Chest pain, unspecified type COMPREHENSIVE METABOLIC PANEL Routine 07/09/2024 9:40 AM PROGRAM MANAGEMENT SPECIALIST Encounter for preventive health examination Status post gastric bypass for obesity LIPID REFLEX TO DIRECT LDL PANEL Routine 07/09/2024 9:40 AM PROGRAM MANAGEMENT SPECIALIST Encounter for preventive health examination Lipid screening Status post gastric bypass for obesity HPV AND GYNECOLOGIC CYTOLOGY PANEL Routine 07/09/2024 9:17 AM PROGRAM MANAGEMENT SPECIALIST Cervical cancer screening MA SCREENING BILATERAL W/ VENICE Routine 06/15/2022 2:44 PM PROGRAM MANAGEMENT SPECIALIST Visit for screening mammogram from Last 3 Months or Most Recently Relevant to Health Maintenance Results * DX AXIAL HIPS/SPINE (08/30/2024 11:47 AM CDT) Anatomical Region Laterality Modality Dexa Bone Mineral Den sity 08/30/2024 11:4 7 AM CDT Impressions 08/31/2024 1:52 PM CDT IMPRESSION: Low bone density (OSTEOPENIA). T-score meets the WHO criteria for low bone density (osteopenia) at one or more measured sites. The risk of osteoporotic fracture increases approximately two-fold for each standard deviation decrease in T-score. Narrative 08/31/2024 1:52 PM CDT EXAM: DX AXIAL HIPS/SPINE LOCATION: [facility] DATE: 08/30/2024 INDICATION: BMD screening, baseline. On estradiol. DEMOGRAPHICS: Age- 69 years. Gender- Female. Menopausal status- Postmenopausal. COMPARISON: No prior studies available on the current scanner. TECHNIQUE: Dual-energy x-ray absorptiometry (DXA) performed with routine technique. FINDINGS: DXA RESULTS -Lumbar Spine: L1-L4: BMD: 1.024 g/cm2. T-score: -1.4. Z-score: 0.3. -RIGHT Hip Total: BMD: 0.858 g/cm2. T-score: -1.2. Z-score: 0.3. -RIGHT Hip Femoral neck: BMD: 0.796 g/cm2. T-score: -1.7. Z-score: 0.0. -LEFT Hip Total: BMD: 0.823 g/cm2. T-score: -1.5. Z-score: 0.0. -LEFT Hip Femoral neck: BMD: 0.787 g/cm2. T-score: -1.8. Z-score: -0.1. WHO T-SCORE CRITERIA -Normal: T-score at or above -1 SD -Osteopenia: T-score between -1 and -2.5 SD -Osteoporosis: T-score at or below -2.5 SD The World Health Organization (WHO) criteria is applicable to perimenopausal females, postmenopausal females, and men aged 50 years or older. FRACTURE RISK -The FRAX risk calculator is not applicable due to medication that is used for treatment of osteopenia/osteoporosis or can otherwise affect bone mineral density. Procedure Note Reyna Rodrigues PA-C - 08/31/2024 EXAM: DX AXIAL HIPS/SPINE LOCATION: [facility] DATE: 08/30/2024 INDICATION: BMD screening, baseline. On estradiol. DEMOGRAPHICS: Age- 69 years. Gender- Female. Menopausal status-Postmenopausal. COMPARISON: No prior studies available on the current scanner. TECHNIQUE: Dual-energy x-ray absorptiometry (DXA) performed with routinetechnique. FINDINGS: DXA RESULTS -Lumbar Spine: L1-L4: BMD: 1.024 g/cm2. T-score: -1.4. Z-score: 0.3. -RIGHT Hip Total: BMD: 0.858 g/cm2. T-score: -1.2. Z-score: 0.3. -RIGHT Hip Femoral neck: BMD: 0.796 g/cm2. T-score: -1.7. Z-score: 0.0. -LEFT Hip Total: BMD: 0.823 g/cm2. T-score: -1.5. Z-score: 0.0. -LEFT Hip Femoral neck: BMD: 0.787 g/cm2. T-score: -1.8. Z-score: -0.1. WHO T-SCORE CRITERIA -Normal: T-score at or above -1 SD -Osteopenia: T-score between -1 and -2.5 SD -Osteoporosis: T-score at or below -2.5 SD The World Health Organization (WHO) criteria is applicable toperimenopausal females, postmenopausal females, and men aged 50 years orolder. FRACTURE RISK -The FRAX risk calculator is not applicable due to medication that is usedfor treatment of osteopenia/osteoporosis or can otherwise affect bonemineral density. IMPRESSION: Low bone density (OSTEOPENIA). T-score meets the WHO criteriafor low bone density (osteopenia) at one or more measured sites. The riskof osteoporotic fracture increases approximately two-fold for eachstandard deviation decrease in T-score. Colette Wolfe CNP IMG DEXA ORDERABLES Final Resu lt * (ABNORMAL) Lipid panel reflex to direct LDL Fasting (07/09/2024 9:40 AM PROGRAM MANAGEMENT SPECIALIST) Cholesterol 202(H) <200 mg/dL 07/09/2024 9:54 PM PROGRAM MANAGEMENT SPECIALIST [facility] Triglycerides 77 <150 mg/dL 07/09/2024 9:54 PM PROGRAM MANAGEMENT SPECIALIST [facility] Direct Measure HDL 66 >=50 mg/dL 07/09/2024 9:54 PM PROGRAM MANAGEMENT SPECIALIST [facility] LDL Cholesterol Calculated 121(H) <100 mg/dL 07/09/2024 9:54 PM PROGRAM MANAGEMENT SPECIALIST [facility] Non HDL Cholesterol 136(H) <130 mg/dL 07/09/2024 9:54 PM PROGRAM MANAGEMENT SPECIALIST [facility] Patient Fasting > 8hrs? Yes 07/09/2024 9:54 PM PROGRAM MANAGEMENT SPECIALIST [facility] Blood BLOOD SPECIMEN / Unknown Venipuncture / Unknown 07/09/2024 9:40 AM PROGRAM MANAGEMENT SPECIALIST 07/09/2024 9:40 AM PROGRAM MANAGEMENT SPECIALIST Narrative [facility] - 07/09/2024 9:54 PM PROGRAM MANAGEMENT SPECIALIST Cholesterol Desirable: < 200 mg/dL Borderline High: 200 - 239 mg/dL High: >= 240 mg/dL Triglycerides Normal: < 150 mg/dL Borderline High: 150 - 199 mg/dL High: 200-499 mg/dL Very High: >= 500 mg/dL Direct Measure HDL Female: >= 50 mg/dL Male: >= 40 mg/dL LDL Cholesterol Desirable: < 100 mg/dL Above Desirable: 100 - 129 mg/dL Borderline High: 130 - 159 mg/dL High: 160 - 189 mg/dL Very High: >= 190 mg/dL Non HDL Cholesterol Desirable: < 130 mg/dL Above Desirable: 130 - 159 mg/dL Borderline High: 160 - 189 mg/dL High: 190 - 219 mg/dL Very High: >= 220 mg/dL us Colette Wolfe WIRELESS SALES EXPERT LAB - BLOOD ORDERABLES Final R esult [facility] [address] [facility] [address] [facility], [address] [place] [address], [facility] * Comprehensive metabolic panel (BMP + Alb, Alk Phos, ALT, AST, Total. Bili, TP) (07/09/2024 9:40 AM PROGRAM MANAGEMENT SPECIALIST) Pathologist [facility] Sodium 140 135 - 145 mmol/L 07/09/2024 9:54 PM PROGRAM MANAGEMENT SPECIALIST [facility] Potassium 4.3 3.4 - 5.3 mmol/L 07/09/2024 9:54 PM PROGRAM MANAGEMENT SPECIALIST [facility] Carbon Dioxide (CO2) 24 22 - 29 mmol/L 07/09/2024 9:54 PM PROGRAM MANAGEMENT SPECIALIST [facility] Anion Gap 11 7 - 15 mmol/L 07/09/2024 9:54 PM PROGRAM MANAGEMENT SPECIALIST [facility] Urea Nitrogen 15.4 8.0 - 23.0 mg/dL 07/09/2024 9:54 PM PROGRAM MANAGEMENT SPECIALIST [facility] Creatinine 0.80 0.51 - 0.95 mg/dL 07/09/2024 9:54 PM PROGRAM MANAGEMENT SPECIALIST [facility] GFR Estimate 79 >60 mL/min/1.7 3m2 07/09/2024 9:54 PM PROGRAM MANAGEMENT SPECIALIST [facility] Comment:eGFR calculated us2020 CKD-EPI equation. Calcium 9.4 8.8 - 10.4 mg/dL 07/09/2024 9:54 PM PROGRAM MANAGEMENT SPECIALIST [facility] Chloride 105 98 - 107 mmol/L 07/09/2024 9:54 PM PROGRAM MANAGEMENT SPECIALIST [facility] Glucose 99 70 - 99 mg/dL 07/09/2024 9:54 PM PROGRAM MANAGEMENT SPECIALIST [facility] Alkaline Phosphatase 89 40 - 150 U/L 07/09/2024 9:54 PM PROGRAM MANAGEMENT SPECIALIST [facility] AST 25 0 - 45 U/L 07/09/2024 9:54 PM PROGRAM MANAGEMENT SPECIALIST [facility] ALT 13 0 - 50 U/L 07/09/2024 9:54 PM PROGRAM MANAGEMENT SPECIALIST [facility] Protein Total 7.6 6.4 - 8.3 g/dL 07/09/2024 9:54 PM PROGRAM MANAGEMENT SPECIALIST [facility] Albumin 4.1 3.5 - 5.2 g/dL 07/09/2024 9:54 PM PROGRAM MANAGEMENT SPECIALIST [facility] Bilirubin Total 0.6 <=1.2 mg/dL 07/09/2024 9:54 PM PROGRAM MANAGEMENT SPECIALIST [facility] Patient Fasting > 8hrs? Yes 07/09/2024 9:54 PM PROGRAM MANAGEMENT SPECIALIST [facility] Blood BLOOD SPECIMEN / Unknown Venipuncture / Unknown 07/09/2024 9:40 AM PROGRAM MANAGEMENT SPECIALIST 07/09/2024 9:40 AM PROGRAM MANAGEMENT SPECIALIST Colette Wolfe WIRELESS SALES EXPERT LAB - BLOOD ORDERABLES Final R esult [facility]ATORY [facility] [address] [facility] [address], [address] [place] [phone], [facility] * HPV and Gynecologic Cytology Panel - Recommended Age 30 - 65 Years (07/09/2024 9:17 AM PROGRAM MANAGEMENT SPECIALIST) Human Papilloma Virus 16 DNA Negative Negative 07/10/2024 4:32 PM PROGRAM MANAGEMENT SPECIALIST [facility] Human Papilloma Virus 18 DNA Negative Negative 07/10/2024 4:32 PM PROGRAM MANAGEMENT SPECIALIST [facility] Human Papilloma Virus Other Negative Negative 07/10/2024 4:32 PM PROGRAM MANAGEMENT SPECIALIST [facility] FINAL DIAGNOSIS This patient's sample is negative for high risk HPV DNA. METHODOLOGY: The [employer] system uses automated extraction, simultaneous amplification of HPV (E6/E7 oncogenes) and beta-globin, followed by real time detection of fluorescent labeled HPV and beta globin using specific oligonucleotide probes. The test specifically identifies types HPV 16 DNA and HPV 18 DNA while concurrently detecting the rest of the high risk types (31, 33, 35, 39, 45, 51, 52, 56, 58, 59, 66 or 68). COMMENTS: This test is not intended for use as a screening device for woman under age 30 with normal cervical cytology. Results should be correlated with cytologic and histologic findings. Close clinical follow up is recommended. Please see the separate Gynecologic Cytology (Pap) report from the same collection date. 07/10/2024 4:32 PM PROGRAM MANAGEMENT SPECIALIST MOLECULAR DIAGNOSTICS Brushing ENDOCERVICAL STRUCTURE / Unknown Non-blood Collection / Unknown 07/09/2024 9:17 AM PROGRAM MANAGEMENT SPECIALIST 07/09/2024 9:49 AM PROGRAM MANAGEMENT SPECIALIST Colette Wolfe WIRELESS SALES EXPERT LAB - BLOOD ORDERABLES Final R esult [facility] [address] [facility] [address], [address] [phone], [employer] [facility] [employer] MOLECULAR DIAGNOSTICS Molecular Diagnostics [address] [facility] [address] Building, Room [address] [place] [phone], [place] * [place] Screening Bilateral w/ [place] (06/15/2022 2:44 PM PROGRAM MANAGEMENT SPECIALIST) Anatomical Region Laterality Modality Breast Bilateral Mammography Impressions 06/21/2022 11:18 AM PROGRAM MANAGEMENT SPECIALIST IMPRESSION: ACR BI-RADS Category 1: Negative RECOMMENDED FOLLOW-UP: Annual routine screening mammogram The results and recommendations of this examination will be communicated to the patient. Ivonne Sanchez MD Narrative 06/21/2022 11:18 AM PROGRAM MANAGEMENT SPECIALIST BILATERAL FULL FIELD DIGITAL SCREENING MAMMOGRAM WITH TOMOSYNTHESIS Performed on: 06/15/22 Compared to: 04/03/2021, 01/15/2019, and 12/28/2017 Technique: This study was evaluated with the assistance of Computer-Aided Detection. Breast Tomosynthesis was used in interpretation. Findings: The breasts have scattered areas of fibroglandular density. There is no radiographic evidence of malignancy. Poncho Castro MD IMG MAMMOGRAPHY ORDERA BLES Final Result from Last 3 Months or Most Recently Relevant to Health Maintenance Insurance [facility] MEDICARE ADVANTAGE [facility] MEDICARE ADVANTAGE Care Teams Rail Doweling Machine Operator Relationship Specialty Start Date End Date Colette Wolfe CNP [address] [place] [address] PCP - General Internal Medicine 07/09/24 Poncho Castro MD [address] [place] [address] Assigned OBGYN Provider 06/19/22 Angelica Elder PA-C [address] [address] Physician Air Duct Mechanic 06/12/24 Colette Wolfe CNP [address] [place] [address] Assigned PCP 07/15/24 Umang Nina MD [facility] [place] [address] Assigned Dermatology Provider 12/12/24
--- OUTSIDE RECORDS SUMMARY | 2025-02-07 16:39 | XMS_ITS | Encounter Summary ---
Author Organization [facility] Address [address] [place] [address] Care Team Providers Care Veterinary Dentist Name Role Phone Poncho Castro MD Unavailable Angelica Elder PA-C Unavailable [phone] Colette Wolfe LABORER CHEESEMAKING Primary Care Provider Colette Wolfe CNP Unavailable [phone] Umang Nina MD Unavailable Encounter Details Date Type Department Care Team (Late st Contact Info) Description 12/27/2024 MyC Medical Advice [facility] [place] [address] [place] [address] Poncho Castro MD [address] [place] [address] Symptomatic menopausal or female climacteric states Social History Tobacco Use Types Packs/Day Years [...] re latives? Once a week 07/08/2024 Attends Congregation Services Not on file 02/16 /2025 Active Member of Clubs or Organizations Not on f ile 07/08/2024 Attends Club or Organization Meetings Not on alo e 07/08/2024 Marital Status Not on file 07/08/2024 PHQ-2 Answer Date Recorded PHQ-2 Score 1 07/09/2024 [facility] of Occupat ional Health - Occupational Stress [...] Answer Date Recorded Do you have housing? (Fatimah g is defined as stable permanent housing and does not include staying outside in a car, in a tent, in an abandoned building, in an overnight custodial, or couch-surfing.) Yes 07/08/2024 Are you worried [...] on file documented as of this encounter Miscellaneous Notes * Telephone Encounter - Veronica Doe RN - 12/27/2024 11:33 AM CDT Refill sent to pharmacy. Last OV 01/2024 Veronica Doe RN [facility] documented in this encounter Plan of Treatment Upcoming Encounters Date Type Department Care Team (Late st Contact Info) Description 02/14/2025 9:15 AM CDT Office Visit [facility] [address] [place] [address] Poncho Castro MD [address] [place] [address] documented as of this encounter Visit Diagnoses Diagnosis Symptomatic menopausal or female climacteric states documented in this encounter Care Teams Veterinary Dentist Relationship Specialty Start Date End Date Colette Wolfe CNP [address] [place] [address] PCP - General Internal Medicine 07/09/24 Poncho Castro MD [address] [place] [address] Assigned OBGYN Provider 06/19/22 Angelica Elder PA-C [address] [place] [address] Physician Engineering Technician Parking 06/12/24 Colette Wolfe, LABORER CHEESEMAKING [address] [place] [address] Assigned PCP 07/15/24 Umang Nina MD [address] [place] [address] Assigned Dermatology Provider 12/12/24 documented as of this encounter
--- OUTSIDE RECORDS SUMMARY | 2025-02-07 16:39 | XMS_ITS | Encounter Summary ---
Author Organization [facility] Address [address] [place] [address] Care Team Providers Care Sales Account Representative Name Role Phone Poncho Castro MD Unavailable [phone] Yumiko Mendoza MD Unavailable [phone] Angelica Elder PA-C Unavailable [phone] Colette Wolfe TELEVISION REPAIR TEACHER Primary Care Provider [phone] Colette Wolfe CNP Unavailable [phone] Angelica Elder PA-C Unavailable [phone] Umang Nina MD Unavailable + [phone] Encounter Details Date Type Department Care Team (Late st Contact Info) Description 07/10/2024 MyC Medical Advice Initial Department [facility] Social History Tobacco Use Types Packs/Day Years [...] re latives? Once a week 07/08/2024 Attends Judaism Services Not on file 07/08 Active Member of Clubs or Organizations Not on f ile 07/08/2024 Attends Club or Organization Meetings Not on alo e 07/08/2024 Marital Status Not on file 07/08/2024 PHQ-2 Answer Date Recorded PHQ-2 Score 1 07/09/2024 [facility] - Occupational Stress Questionnaire Answer Date Recorded [...] Date Recorded Do you have housing? (Fatimah fajardo is defined as stable permanent housing and does not include staying outside in a car, in a tent, in an abandoned building, in an overnight fci, or couch-surfing.) Yes 07/08/2024 Are you worried [...] Description 02/14/2025 9:15 AM CDT Office Visit [facility] [address] [place] [address] Poncho Castro MD [address] [place] [address] documented as of this encounter Visit Diagnoses Not on filedocumented in this encounter Care Teams Sales Account Representative Relationship Specialty Start Date End Date Colette Wolfe CNP [address] [place] [address] PCP - General Internal Medicine 07/09/24 Poncho Castro MD [address] [place] [address] Assigned OBGYN Provider 06/19/22 [place] [address] [place] [address] Assigned PCP 07/17/22 07/14/24 Angelica Elder PA-C [address] [place] [address] Physician Client Success Director 06/12/24 Colette Wolfe CNP [address] [place] [address] Assigned PCP 07/15/24 Angelica Elder PA-C [address] [place] [address] Assigned Dermatology Provider 08/12/24 12/11/24 Umang Nina MD [facility] [place] [address] Assigned Dermatology Provider 12/12/24 documented as of this encounter
--- OUTSIDE RECORDS SUMMARY | 2025-02-07 16:39 | XMS_ITS | Encounter Summary ---
Author Organization [facility] Address [address] [place] [address] Care Team Providers Care Minesweeping Officer Name Role Phone Poncho Castro MD Unavailable [phone] Yumiko Mendoza MD Unavailable [phone] Angelica Elder PA-C Unavailable [phone] Colette Wolfe WHARFINGER CHIEF Primary Care Provider [phone] Colette Wolfe CNP Unavailable [phone] Angelica Elder PA-C Unavailable [phone] Umang Nina MD Unavailable + [phone] Encounter Details Date Type Department Care Team (Late st Contact Info) Description 07/10/2024 MyC Medical Advice Initial [facility] Social History Tobacco Use [...] re latives? Once a week 07/08/2024 Attends Scientologist Services Not on file 07/08 Active Member of Clubs or Organizations Not on f ile 07/08/2024 Attends Club or Organization Meetings Not on alo e 07/08/2024 Marital Status Not on file 07/08/2024 PHQ-2 Answer Date Recorded PHQ-2 Score 1 07/09/2024 [facility] of [facility]at [facility] - Occupational Stress Questionnaire Answer Date [...] in an abandoned building, in an overnight correction, or couch-surfing.) Yes 07/08/2024 Are you worried [...] Description 02/14/2025 9:15 AM CDT Office Visit [facility] [address] [place] [address] Poncho Castro MD [address] [place] [address] documented as of this encounter Visit Diagnoses Not on filedocumented in this encounter Care Teams Minesweeping Officer Relationship Specialty Start Date End Date Colette Wolfe CNP [address] [place] [address] PCP - General Internal Medicine 07/09/24 Poncho Castro MD [address] [place] [address] Assigned OBGYN Provider 06/19/22 [place] [address] [place] [address] Assigned PCP 07/17/22 07/14/24 Angelica Elder PA-C [address] [place] [address] Physician Door Opener 06/12/24 Colette Wolfe CNP [address] [place] [address] Assigned PCP 07/15/24 Angelica Elder PA-C [address] [place] [address] Assigned Dermatology Provider 08/12/24 12/11/24 Umang Nina MD [facility] [place] [address] Assigned Dermatology Provider 12/12/24 documented as of this encounter
[2025-02-07 17:00] VITALS: BP 122/58; PULSE 84; RESP 16; TEMP 36.3; O2SAT 99; BMI 35.1
[2025-02-07 17:09] LABS: Appearance Urine Clear (Clear)
--- NOTE | 2025-02-07 17:55 | ED.GENADULT ---
HPI - General Adult General Date Seen: 02/07/25 Chief complaint: Back Injury/Pain Stated complaint: Triage nurse sent - possible kidney stone Time Seen by Provider: 02/07/25 17:55 History of Present Illness HPI narrative: 69-year-old female with a past medical history of elevated BMI, Yaneli-en-Y gastric bypass, 1 previous bowel obstruction managed operatively in 2004, cholecystectomy, 1 previous kidney stone, prediabetes, rosacea, irritable bowel syndrome,. She does not have any known history pancreatitis, peptic ulcer disease, low back problems, or back surgeries. No known history of vascular problems or aortic problems. She presents to the ER today with a in her back/right flank- between her waist and her bra strap. It feels like stabbing pain. She 1st had an episode this pain about 2 months ago on November 28. She had been at dinner with some friends here in [place] and had would fired pizza and a couple of ?short true so? drinks. After that she had this intense stabbing pain in right flank. Was pretty intense for a few hours and then was mild for couple of days and was largely better. 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 She started having a little bit of pain yesterday and had some very mild pain this morning when she got up but generally felt okay. She had an active morning and went through the [facility] and [facility] and flew home. When she was getting off the plane here in [place] and walking [place] she had onset of another severe stabbing episode of pain. It is again located in her right flank. It does not radiate to the front. The pain is does not feel exactly like her previous kidney stone (that stone presented with a lot of urethral pain as well). Sometimes the pain radiates from the right flank into the left flank. No pain in the front of her abdomen. She is not having any shortness of breath but does note when the pain is severe that it, ?takes her breath away. ?. She does not have any recent swelling in her legs. No history of DVT or PE. Other than her plane flight to [place] and back no other recent immobilization. She does not have a cough. No rib pain. No rash. No known injury. The pain does not radiate down her legs. No associated numbness. Urination has been normal. Bowel movements have been normal safe she had some loose stools about 3 days ago. No bloody stools. Related Data Home Medications ?Medication ?Instructions ?Recorded ?Confirmed biotin PO .QD 09/02/22 09/09/23 cholecalciferol (vitamin D3) 25 25 mcg PO QDAY 09/02/22 09/09/23 mcg (1,000 unit) capsule multivitamin 1 tab PO QAM 09/02/22 05/26/23 clobetasol 0.05 % topical ointment 1 applic topical QDAY PRN 09/06/22 09/09/23 ibuprofen 800 mg tablet 800 mg PO TID PRN 09/06/22 09/09/23 ketoconazole 2 % topical cream 1 applic topical BID PRN 09/06/22 09/09/23 Allergies Allergy/AdvReac Type Severity Reaction Status Date / Time Penicillins Allergy Severe Anaphylaxis Verified 02/07/25 19:57 PFSH PFSH Surgical History (Updated 09/09/23 @ 10:29 by Zahraa Sheth) History of exploratory laparotomy ?Z98.890 - Other specified postprocedural states (ICD-10) History of cholecystectomy (~03/1986) ?Z90.49 - Acquired absence of other specified parts of digestive tract (ICD-10) History of appendectomy ?Z90.49 - Acquired absence of other specified parts of digestive tract (ICD-10) History of tonsillectomy ?Z90.89 - Acquired absence of other organs (ICD-10) S/P trigger finger release ?Z98.890 - Other specified postprocedural states (ICD-10) H/O excision of ganglion cyst ?Z98.890 - Other specified postprocedural states (ICD-10) Status post brachioplasty ?Z98.890 - Other specified postprocedural states (ICD-10) History of basal cell carcinoma excision ?Z98.890 - Other specified postprocedural states (ICD-10) ?Z85.828 - Personal history of other malignant neoplasm of skin (ICD-10) Family History (Updated 09/09/23 @ 10:33 by Zahraa Sheth) Father Stroke Sister Breast cancer Diabetes Mother CHF (congestive heart failure) Brother Diabetes Social History (Updated 09/09/23 @ 10:34 by Zahraa Sheth) Narrative: 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 What is your current living situation?: I presently have a place to live Problems where you live: no known problems In the past 12 months, utilities in danger of being shut off: no In past 12 months, lack of transportation kept you from medical appts, meetings, work, or getting things needed for daily living: no In the past 12 mos, have been you worried that your food would run out before you had money to buy more?: never true In the past 12 mos, the food you bought just didn't last and you didn't have money to buy more?: never true Smoking Status: Never smoker Second hand tobacco smoke exposure: No How often do you have a drink containing alcohol: never AUDIT-C Alcohol total score: 0 Non-prescribed substance use: denies use Are you now , , , , never or living with a partner: Social isolation score (0-1 are the most socially isolated patients): 1 How often does anyone, including family, friends and others, physically hurt you: never How often does anyone, including family, friends and others, insult or talk down to you: rarely How often does anyone, including family, friends and others, threaten you with harm: never How often does anyone, including family, friends and others, scream or curse at you: never Health Related Social Needs: Other personal risk factors, not elsewhere classified (Z91.89) Exam Narrative: Exam Narrative: Constitutional: Appears well-developed and well-nourished. Alert. Conversant. Non toxic. HENT: Head: Atraumatic. Nose: Nose normal. Mouth/Throat: Oral mucosa is clear and moist. no trismus. Pharynx normal. Tonsils symmetric. No tonsillar enlargement, erythema, or exudate. Eyes: Conjunctivae normal. EOM normal. Pupils equal, round, and reactive to light. No scleral icterus. Neck: Normal range of motion. Neck supple. No tracheal deviation present. Cardiovascular: Normal rate, regular rhythm. No gallop. No friction rub. No murmur heard. Symmetric radial artery pulses Pulmonary/Chest: Effort normal. No stridor. No respiratory distress. No wheezes. No rales. No rhonchi . No tenderness. Abdominal: Soft. Bowel sounds normal. No distension. No mass. No tenderness. No rebound. No guarding. Right CVA tenderness. No bruising. No rash. Musculoskeletal: Right CVA tenderness. No midline thoracic or lumbar aunts tenderness or step-off. No bruising. No redness. No warmth. No rash. No shingles. RUE: Normal range of motion. No tenderness. No deformity LUE: Normal range of motion. No tenderness. No deformity RLE: Normal range of motion. No edema. No tenderness. No deformity LLE: Normal range of motion. No edema. No tenderness. No deformity Neurological: Alert and oriented to person, place, and time. Normal strength. CN II-VII intact. No sensory deficit. GCS eye subscore is 4. GCS verbal subscore is 5. GCS motor subscore is 6. Normal coordination Sensory: Normal light touch sensation bilaterally on the anteromedial thigh (L3), medial malleolus (L4), dorsal first web space (L5), lateral malleolus (S1). Strength: 5/5 strength hip flexors (L3) on the right and left 5/5 strength in the quadriceps (L4) on the right and left 5/5 strength in the tibialis anterior 5/5 strength in the EHL (L5) on the right and left 5/5 strength in the gastrocnemius (S1) on the right and left 5/5 strength in the hamstring on the right and left Skin: Skin is warm and dry. No rash noted. No pallor. Normal capillary refill. Psychiatric: Normal mood. Normal affect. Const: Vital Signs, click to edit/add: Vital Signs - 24 hr 02/07/25 17:00 02/07/25 19:00 02/07/25 19:30 Temperature 97.3 F L Pulse Rate Pulse Rate [Pulse Oximeter] 84 73 71 Respiratory Rate 16 18 16 Blood Pressure [Ri ght Upper Arm] 122/58 L 147/77 H 139/72 Pulse Oximetry 99 99 99 Oxygen Delivery Me thod Room Air Room Air Room Air 02/07/25 20:55 02/07/25 21:00 Temperature Pulse Rate 69 70 Pulse Rate [Pulse Oximeter] Respiratory Rate Blood Pressure [Ri ght Upper Arm] Pulse Oximetry 98 100 Oxygen Delivery Me thod Course Vital Signs Vital signs: Initial Vital Signs Temperature 97.3 F L 02/07/25 17:00 Temperature Source Temporal Artery Scan 02/07/25 17:00 Pulse Rate 84 02/07/25 17:00 Respiratory Rate 16 02/07/25 17:00 Blood Pressure 122/58 L 02/07/25 17:00 Blood Pressure Mean 79 02/07/25 17:00 Blood Pressure Position Sitting 02/07/25 17:00 Pulse Oximetry 99 02/07/25 17:00 Oxygen Delivery Method Room Air 02/07/25 17:00 Vital Signs Temperature 97.3 F L 02/07/25 17:00 Pulse Rate 84 02/07/25 17:00 Respiratory Rate 16 02/07/25 17:00 Blood Pressure 122/58 L 02/07/25 17:00 Pulse Oximetry 99 02/07/25 17:00 Oxygen Delivery Method Room Air 02/07/25 17:00 Temperature 97.3 F L 02/07/25 17:00 Pulse Rate 70 02/07/25 21:00 Respiratory Rate 16 02/07/25 19:30 Blood Pressure 139/72 02/07/25 19:30 Pulse Oximetry 100 02/07/25 21:00 Oxygen Delivery Method Room Air 02/07/25 19:30 Medications Administered Medications: Discontinued Medications Generic Name Dose Route Start Last Admin Trade Name Freq PRN Reason Stop Dose Admin Ketorolac Tromethamine 15 mg 02/07/25 18:18 02/07/25 19:20 Ketorolac 15 Mg/Ml Inj IVP 02/07/25 18:19 15 mg ONCE ONE Administration Medical Decision Making [facility] Narrative Medical decision making narrative: 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 He had a similar episode about 2 months ago that came without clear cause and resolved after a couple of days. Differential is broad. Consider possible kidney stone however urinalysis is negative for hematuria. Urinalysis also negative for any signs of infection to suggest pyelonephritis. The pain is mostly in her right flank and is not in the midline low back. There is no radiation of symptoms down into her pelvis, legs. No evidence that this is a lumbar radiculopathy or specifically referral to her vertebrae or spine. No risk factors for epidural abscess, hematoma. No obvious spine fractures or Mets on the CT scan. She has had recent travel to and from [place]. Considerable possible PE. She has no exam findings for DVT. We did obtain CT PA which is negative for any sign of acute pulmonary embolism. Also CT is negative for right-sided pleural effusion, right lower lobe infiltrate or pneumonia, right-sided pneumothorax. She is not hypoxic or short of breath. No anterior chest pain to raise any concern for ACS. She has had previous cholecystectomy. Also room like gastric bypass and previous appendectomy. She is not having any right upper quadrant anterior pain, and denies any relationship of her pain to food. LFTs are normal. Lipase is normal. Per abdominal CT scan she does have a dilated common bile duct at 12 mm. This could be postoperative for her previous cholecystectomy. Radiology recommends MRCP if there is clinical evidence for biliary obstruction. However she is not having any anterior pain, elevated LFTs, so this point clinically this does not fit with a biliary cause. No signs of any thoracic cellulitis, skin infection, shingles. No bruising. It is possible of the pain is musculoskeletal. However she has no known injury. At this point she is not having any symptoms of lumbar radiculopathy to raise need for admission or MRI tonight. Plan will be for careful observation and 18-24 hour recheck re-eval and recheck labs for her blood counts and LFTs. Return to the ER sooner if worse. Return precautions reviewed reviewed. Instymeds prescriptions for [place] and Flexeril. Opiate and sedation precautions reviewed. Lab Data Labs: Lab Results 02/07/25 02/07/25 Range/Units 16:47 19:10 WBC 8.28 (4.50-11.00) K/uL RBC 4.59 (4.00-5.20) m/uL Hgb 12.1 (12.0-16.0) gm/dL Hct 38.4 (33.0-51.0) % MCV 84 (80-100) fL MCH 26 (26-34) pg MCHC 32 (32-36) gm/dL RDW Coeff of Vance 15.7 H (11.5-15.5) % Plt Count 175 (140-440) K/uL Neut % (Auto) 69.5 (42.0-72.0) % Lymph % (Auto) 19.3 L (20-44) % [place] % (Auto) 9.1 (0.0-11.0) % Eos % (Auto) 1.1 (0.0-7.0) % Baso % (Auto) 0.2 (0.0-3.0) % Neut # (Auto) 5.75 (1.7-7.0) K/uL Lymph # (Auto) 1.60 (0.90-2.90) K/uL [place] # (Auto) 0.80 (0.00-0.90) K/UL Eos # (Auto) 0.09 (0.00-0.50) K/uL Baso # (Auto) 0.02 (0.00-0.30) K/uL Abs Immat Gran (auto) 0.07 (0.00-0.30) K/uL Imm/Tot Granulo (auto) 0.8 % Sodium 138 (135-149) mmol/L Potassium 4.7 (3.6-5.1) mmol/L Chloride 106 (96-114) mmol/L Carbon Dioxide 27 (20-32) mmol/L Anion Gap 5 L (7-15) mEq/L BUN 14 (7-30) mg/dL Creatinine 0.8 (0.5-1.5) mg/dL Estimated Creat Clear 45.20 Estimated GFR 79 ml/min Glucose 87 (60-115) mg/dL Lactate 1.0 (0.5-1.9) mmol/L Calcium 8.8 (8.4-10.6) mg/dL Total Bilirubin 0.4 (0.1-1.5) mg/dL AST 31 (12-35) U/L ALT 13 (4-35) U/L Alkaline Phosphatase 70 (40-150) U/L Total Protein 7.5 (6.0-8.3) g/dL Albumin 4.1 (3.3-5.0) g/dL Lipase 121 (23-300) U/L Urine Color Yellow (Yellow) Urine Appearance Clear (Clear) Urine pH 5.5 (5.0-8.5) Ur Specific [place] 1.025 (1.000-1.030) Urine Protein Negative (Negative) Urine Glucose (UA) Negative (Negative) Urine Ketones Negative (Negative) Urine Blood Negative (Negative) Urine Nitrite Negative (Negative) Urine Bilirubin Negative (Negative) Urine Urobilinogen 0.2 (0.2-1.0) Ur Leukocyte Esterase Negative (Negative) Urine RBC 0-2 (0-2) Urine WBC 0-2 (0-5) Ur Squamous Epith Cells None (None-Few) Urine Bacteria None (None) Imaging Data CT scan - chest: Attestation: I have reviewed the pertinent imaging results. Radiologist's impression: IMPRESSION: 1. No CT evidence of acute pulmonary emboli seen. CT scan - abdomen: Attestation: I have reviewed the pertinent imaging results. Radiologist's impression: IMPRESSION: 1. The common bile duct is dilated, measuring 12 mm. If there is clinical evidence of biliary obstruction, further evaluation with MRCP or ERCP is recommended. Dictated by José Manuel Suarez MD @ 02/07/2025 8:41:48 PM Discharge Plan Discharge Clinical Impression: Acute right flank pain, Aortic ectasia, thoracic, Dilation of biliary tract Patient Disposition: Home, Self-Care Condition: Stable Instructions: Flank Pain (ED) Additional Instructions: As we discussed, so far your workup looks reassuring. Right now we suspect your pain is probably due to muscle spasm (without a known injury to your muscles). If your pain is not substantially improved within 12-24 hours, please recheck with your doctor or return to the ER for re-evaluation so that we can double check your blood tests and liver function tests. If notice any changing or worsening or new symptoms, or have any concerns, please come back to the ER right away. Especially look out for high fever, trouble breathing, pain in the front of your abdomen or chest, numbness or pain radiating down your legs. It is okay to treat your pain with Tylenol or ibuprofen. Use the prescription pain killer or muscle relaxer if needed. Be careful because the prescription medications can cause drowsiness, dizziness, constipation, and can be addictive. Do not drive for 6 hours after taking prescription pain killers. Prescriptions: No Action biotin PO .QD multivitamin Tablet 1 tab PO QAM cholecalciferol (vitamin D3) 25 mcg (1,000 unit) capsule 25 mcg PO QDAY clobetasol 0.05 % ointment 1 applic topical QDAY PRN ibuprofen 800 mg tablet 800 mg PO TID PRN ketoconazole 2 % cream 1 applic topical BID PRN Follow Up/Referrals: Inga Cornelius MD [Primary Care Provider, Internal Medicine] Stand Alone Forms: [facility] Info Instructions
--- NOTE | 2025-02-07 18:17 | CRLHL7_ITS ---
For Patients: As a result of the Century Cures Act, medical imaging exams and procedure reports are released immediately into your electronic medical record. You may view this report before your referring provider. If you have questions, please contact your health care provider. INDICATION: Right lower rib chest pain, No trauma, just onset stabbing pain TECHNIQUE: CT chest with i.v. contrast using pulmonary angiographic technique. MIPS, coronal and sagittal reformats were obtained. CONTRAST: 95 mL Isovue 370 COMPARISON: None FINDINGS: Cardiovascular: The pulmonary arteries are unremarkable in enhancement with no evidence of acute pulmonary embolism. The heart has an unremarkable appearance and size. Ectasia of the ascending aorta is noted measuring 3.4 cm in maximal short axis diameter. Mediastinum: No mass or adenopathy seen. Lung: Both lungs are unremarkable in appearance. Pleura and pericardium: No sign of pleural effusion seen. No significant pericardial effusion is present. Chest wall and axilla: No mass or adenopathy seen. Bone: Unremarkable for age. IMPRESSION: 1. No CT evidence of acute pulmonary emboli seen. Dictated by José Manuel Suarez MD @ 02/07/2025 8:39:19 PM Please note that all CT scans at this facility use dose modulation, iterative reconstruction, and/or weight-based dosing when appropriate to reduce radiation dose to as low as reasonably achievable. Dictated by: José Manuel Suarez MD @ 02/07/2025 20:39:25 (Electronically Signed)
--- NOTE | 2025-02-07 18:18 | CRLHL7_ITS ---
For Patients: As a result of the Century Cures Act, medical imaging exams and procedure reports are released immediately into your electronic medical record. You may view this report before your referring provider. If you have questions, please contact your health care provider. INDICATION: Right flank pain TECHNIQUE: CT Abdomen and pelvis with i.v. contrast. Coronal and sagittal reformats were obtained. CONTRAST: 95 mL Isovue 370 COMPARISON: None FINDINGS: Liver: Unremarkable. Spleen: Unremarkable. Pancreas: Unremarkable. Gallbladder: Previous cholecystectomy noted with no significant intra- or extrahepatic biliary ductal dilatation seen. Previous cholecystectomy noted with severe intra and moderate extrahepatic biliary ductal dilatation seen. The common bile duct is dilated, measuring 12 mm. Kidney: Unremarkable. No kidney or ureteral stones or obstruction seen. Adrenal: Unremarkable. Bowel: Prior gastric surgery is noted. There is a gasless density near the ileocecal valve without any apparent obstruction of the terminal ileum. This is most likely due to small bowel contents incompletely mixing with cecal stool. Previous appendectomy noted with no significant appendiceal stump identified. The appendix cannot be identified but there are no inflammatory changes noted in the right lower quadrant. Vascular: Unremarkable. Lymph: Unremarkable. Peritoneum: Unremarkable. No pneumoperitoneum is seen. No significant ascites is noted. Pelvis: Unremarkable. Soft tissue: Unremarkable. Bone: Unremarkable for age. IMPRESSION: 1. The common bile duct is dilated, measuring 12 mm. If there is clinical evidence of biliary obstruction, further evaluation with MRCP or ERCP is recommended. Dictated by José Manuel Suarez MD @ 02/07/2025 8:41:48 PM Please note that all CT scans at this facility use dose modulation, iterative reconstruction, and/or weight-based dosing when appropriate to reduce radiation dose to as low as reasonably achievable. Dictated by: José Manuel Suarez MD @ 02/07/2025 20:41:56 (Electronically Signed)
[2025-02-07 19:00] VITALS: BP 147/77; PULSE 73; RESP 18; O2SAT 99
[2025-02-07 19:28] LABS: Lactate* 1.0 mmol/L (0.5-1.9)
[2025-02-07 19:30] VITALS: BP 139/72; PULSE 71; RESP 16; O2SAT 99
[2025-02-07 19:46] LABS: Albumin* 4.1 g/dL (3.3-5.0); Chloride* 106 mmol/L (96-114)
[2025-02-07 19:47] LABS: Potassium* 4.7 mmol/L (3.6-5.1); Sodium* 138 mmol/L (135-149)
[2025-02-07 19:49] LABS: Alanine Aminotransferase* 13 U/L (4-35); Alkaline Phosphatase* 70 U/L (40-150); Anion Gap 5 mEq/L (7-15); Aspartate Amino Transferase* 31 U/L (12-35); Bilirubin Total* 0.4 mg/dL (0.1-1.5); Blood Urea Nitrogen* 14 mg/dL (7-30); Carbon Dioxide* 27 mmol/L (20-32); Creatinine* 0.8 mg/dL (0.5-1.5); Est. Creatinine Clearance* 45.20; Estimated Glomerular Filt Rate 79 ml/min
[2025-02-07 19:50] LABS: Calcium* 8.8 mg/dL (8.4-10.6); Glucose* 87 mg/dL (60-115); Hematocrit* 38.4 % (33.0-51.0); Hemoglobin* 12.1 gm/dL (12.0-16.0); Immature Granulocytes Abs Auto 0.07 K/uL (0.00-0.30); Immature Granulocytes Pct Auto 0.8 %; Lymphocytes Absolute Auto 1.60 K/uL (0.90-2.90); Mean Corpuscular HGB Conc 32 gm/dL (32-36); Mean Corpuscular Hemoglobin 26 pg (26-34); Mean Corpuscular Volume 84 fL (80-100); RDW Coefficient of Variation % 15.7 % (11.5-15.5); Red Blood Count* 4.59 m/uL (4.00-5.20); Slide Review Reflex No; Total Protein* 7.5 g/dL (6.0-8.3); White Blood Count* 8.28 K/uL (4.50-11.00)
[2025-02-07 20:55] VITALS: PULSE 69; O2SAT 98
[2025-02-07 21:00] VITALS: PULSE 70; O2SAT 100
== END 2025-02-07 21:21 | disposition home or self-care (01) ==
PROVIDERS: Emergency Provider Emergency Medicine; PCP Internal Medicine
DX: R10.9 Unspecified abdominal pain (principal); I77.819 Aortic ectasia, unspecified site; K83.8 Other specified diseases of biliary tract
CPT/HCPCS: 36415; 71275; 74177; 80053; 81001; 83605; 83690; 85025; 96374; 99283; 99284; 99285; J1885; Q9967